=== PATIENT | female | born 1945 | race Caucasian/White ===

== ENCOUNTER → 2018-07-08 | Outpatient (CLI) | payer MEDICARE ==
[~2018-07-08] MED LIST: ALLOPURINOL300 MG PO; BACTRIM DS1 EA PO; BISOPROLOL FUMAR5 MG PO; EMBREL PO; HYDROCODONE AP; LISINOPRIL10 MG; MEDROL4 MG PO; METHOTREXATE2.5 MG PO; Z BISOPROLOL HCT; Z.0.CEFTIN500 MG PO; Z.0.OMEPRAZOLE20 MG PO
--- NOTE | 2018-07-08 12:48 | Diagnostic Imaging Report ---
Exam: Right hand radiographs-3 views; left hand radiographs-3 views History: Bilateral hand pain. Comparison: None. Findings: Right hand: No evidence of acute fracture, malalignment, or soft tissue abnormality. There are moderate degenerative changes of the first carpometacarpal joint. There are scattered mild interphalangeal joint degenerative changes. No evidence of erosion or periarticular osteopenia. There is deformity of the small finger distal phalanx, suggestive of prior trauma. Left hand: No evidence of acute fracture, malalignment, or soft tissue abnormality. There are moderate degenerative changes of the first carpometacarpal joint. There re scattered mild interphalangeal joint degenerative changes. There is bony ankylosis across the second digit DIP joint. No evidence of periarticular osteopenia. Possible erosion is noted in the lunate and the scaphoid on the frontal radiograph, but is not visualized on the oblique radiograph and may reflect overlying soft tissue or artifact. Impression: No specific radiographic evidence of erosive arthropathy as clinically queried. 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 This may be posttraumatic, surgical, or postinflammatory. Signed by: Dr. Walt Cuellar MD on 07/08/2018 12:45 PM
--- NOTE | 2018-07-08 13:02 | Diagnostic Imaging Report ---
EXAM: CT Chest without contrast INDICATION: Chronic cough. COMPARISON: None TECHNIQUE: Chest was scanned utilizing a multidetector helical scanner from the lung apex through the level of the adrenal glands without administration of IV contrast. Coronal and sagittal reformations were obtained. Routine protocol was performed. RADIATION DOSE: Total DLP: 511.7 mGy*cm Dose modulation, iterative reconstruction, and/or weight based adjustment of the mA/kV was utilized to reduce the radiation dose to as low as reasonably achievable. COMPLICATIONS: None FINDINGS: LINES/ TUBES: None. LUNGS AND AIRWAYS: The central airways are patent. There is mild biapical pleural-parenchymal opacity, consistent with prior granulomatous disease. Scattered subpleural opacities in the right upper lobe, for example measuring up to 3 mm on series 3, image 40 may reflect scarring or atelectasis. Opacity along the left major fissure on series 3, image 29 likely reflects atelectasis or scarring. There is a 2 mm groundglass nodule in the right upper lobe on image 30, 2 mm solid nodule in the right upper lobe on images 27 and 38, and a 4 mm solid nodule in the right middle lobe on image 59. Patchy and linear dependent subsegmental atelectasis. PLEURA: The pleural spaces are clear. HEART AND MEDIASTINUM: The thyroid gland is normal. No mediastinal, hilar or axillary lymphadenopathy. No cardiomegaly or pericardial effusion. Coronary atherosclerosis. UPPER ABDOMEN: Limited non-contrast views of the upper abdomen. Moderate hiatal hernia. A 0.5 cm hyperdense lesion in the right mid pole kidney on series 2, image 1:15 likely represents a hemorrhagic cyst (92 HU). BONES: No acute osseous abnormality. No suspicious lytic or blastic lesions. SOFT TISSUES: Unremarkable. IMPRESSION: Small bilateral pulmonary nodules, measuring up to 4 mm are likely benign in a low risk patient. If the patient has a history of smoking or other risk factor for malignancy, an optional follow-up chest CT may be considered in 12 months. Sequela of prior granulomatous disease. Coronary atherosclerosis. Signed by: Dr. Walt Cuellar MD on 07/08/2018 12:59 PM
== END ==
LOC: CT 09:50
PROVIDERS: ATTEND Family Medicine
DX: R05 Cough (principal); M06.011 Rheumatoid arthritis without rheumatoid factor, right shoulder; M06.042 Rheumatoid arthritis without rheumatoid factor, left hand
CPT/HCPCS: 71250

== ENCOUNTER → 2018-08-04 | Day surgery (SDC) | payer MEDICARE ==
[~2018-08-04] MED LIST changes: +FENTANYL CITRATE/PF 100MCG/2 ML INJ ONE; +MIDAZOLAM HCL 2 MG/2 ML VIAL ONE; +OR PHACO EYE KIT ONE; +PREOP PHACO EYE KIT ONE
--- OUTSIDE RECORDS SUMMARY | 2018-08-04 12:55 | XMS REPORT ---
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 Allergies, Adverse Reactions, Alerts This patient has no known allergies or adverse reactions. Medications This patient has no known medications. Results Test Description Test Time Test Comments Text Results Atomic Results Result Comments CT CHEST WO 2018-07-08 12:45:00 [place] [address] Patient Name: ALBERT GILL MR #: [id number] : 1945 Age/Sex: 72/F Req #: [id number] [facility] Physician: Ordered by: MARY GARCIA DO Report #: [id number] Location: CT Room/Bed: Procedure: [id number] CT/CT CHEST WO Exam Date: 07/08/18 Exam Time: 1030 REPORT STATUS: Signed EXAM: CT Chest without contrast INDICATION: Chronic coug h. COMPARISON: None TECHNIQUE: Chest was scanned utilizing a multidetector helical scanner from the lung apex through the level of the adrenal glands without administration of IV contrast. Coronal and sagittal reformations were obtained. Routine protocol was performed. RADIATION DOSE: Total DLP: 511.7 mGy*cm Dose modulation, iterative reconstruction, and/or weight based adjustment of the mA/kV was utilized to reduce the radiation dose to as low as reasonably achievable. COMPLICATIONS: None FINDINGS: LINES/ TUBES: None. LUNGS AND AIRWAYS: The central airways are patent. There is mild biapical pleural- parenchymal opacity, consistent with prior granulomatous disease. Scattered subpleural opacities in the right upper lobe, for example measuring up to 3 mm on series 3, image 40 may reflect scarring or atelectasis. Opacity along the left major fissure on series 3, image 29 likely reflects atelectasis or scarring. There is a 2 mm groundglass nodule in the right upper lobe on image 30, 2 mm solid nodule in the right upper lobe on images 27 and 38, and a 4 mm solid nodule in the right middle lobe on image 59. Patchy and linear dependent subsegmental atelectasis. PLEURA: The pleural spaces are clear. HEART AND MEDIASTINUM: The thyroid gland is normal. No mediastinal, hilar or axillary lymphadenopathy. No cardiomegaly or pericardial effusion. Coronary atherosclerosis. UPPER ABDOMEN: Limited non-contrast views of the upper abdomen. Moderate hiatal hernia. A 0.5 cm hyperdense lesion in the right mid pole kidney on series 2, image 1:15 likely represents a hemorrhagic cyst (92 HU). BONES: No acute osseous abnormality. No suspicious lytic or blastic lesions. SOFT TISSUES: Unremarkable. IMPRESSION: Small bilateral pulmonary nodules, measuring up to 4 mm are likely benign in a low risk patient. If the patient has a history of smoking or other risk factor for fanta gnancy, an optional follow-up chest CT may be considered in 12 months. Sequela of prior granulomatous disease. Coronary atherosclerosis. Signed by: Dr. Lorraine Grijalva MD on 07/08/2018 12:59 PM Dictated By: LORRAINE GRIJALVA MD 1250 Transcribed By: RODRIGO on 07/08/18 1259 COPY TO: MARY GARCIA DO HAND THREE VIEWS BILATERAL 2018-07-08 12:35:00 [place] [address] Patient Name: ALBERT GILL MR #: [id number] : 1945 Age/Sex: 72/F Req #: [id number] Adm Physician: Ordered by: ANGIE LOVE MD Report #: [id number] Location: CT Room/Bed: Procedure: [id number] DX/HAND THREE VIEWS BILATERAL Exam Date: 07/08/18 Exam Time: 0950 REPORT STATUS: Signed Exam: Right hand radiographs-3 views; left hand radiographs-3 views History: Bilateral hand pain. Comparison: None. Findings: Right hand: No evidence of acute fracture, malalignment, or soft tissue abnormality. There are moderate degenerative changes of the first carpometacarpal joint. There are scattered mild interphalangeal joint degenerative changes. No evidence of erosion or periarticular osteopenia. There is deformity of the small finger distal phalanx, suggestive of prior trauma. Left hand: No evidence of acute fracture, malalignment, or soft tissue abnormality. There are moderate degenerative changes of the first carpometacarpal joint. There re scattered mild interphalangeal joint degenerative changes. There is bony ankylosis across the second digit DIP joint. No evidence of periarticular osteopenia. Possible erosion is noted in the lunate and the scaphoid on the frontal radiograph, but is not visualized on the oblique radiograph and may reflect overlying soft tissue or artifact. Impression: No specific radiographic evidence of erosive arthropathy as clinically queried. 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 This may be posttraumatic, surgical, or postinflammatory. Signed by: Dr. Lorraine Grijalva MD on 07/08/2018 12:45 PM Dictated By: LORRAINE GRIJALVA MD [id number] Transcribed By: RODRIGO on 07/08/18 1247 COPY TO: ANGIE LOVE MD
[2018-08-04 16:15] VITALS: BP 137/81
== END | disposition home or self-care (01) ==
LOC: OR 12:50
PROVIDERS: ATTEND Ophthalmology
DX: H25.12 Age-related nuclear cataract, left eye (principal); M06.879 Other specified rheumatoid arthritis, unspecified ankle and foot; I10 Essential (primary) hypertension
CPT/HCPCS: 66984; J2250; V2632

== ENCOUNTER 2020-01-17 08:18 | Emergency (ER) | payer MEDICARE ==
[~2020-01-17] VITALS: Ht 162.6 cm; Wt 70.3 kg
[~2020-01-17 08:18] MED LIST changes: -FENTANYL CITRATE/PF 100MCG/2 ML INJ ONE; -MIDAZOLAM HCL 2 MG/2 ML VIAL ONE; -OR PHACO EYE KIT ONE; -PREOP PHACO EYE KIT ONE
[2020-01-17] MEDS ORDERED: HYDROCODONE/APAP 5MG-325MG TAB PO ONE (08:45)
[2020-01-17] MEDS ORDERED: SODIUM BICARBONATE 8.4% SYRING 50 ML ONE (09:15)
[2020-01-17] MEDS ORDERED: TYLENOL325 MG PO (10:31)
== END 2020-01-17 11:00 | disposition home or self-care (01) ==
LOC: ER 08:36
DX: S01.111A Laceration without foreign body of right eyelid and periocular area, initial encounter (principal); S06.0X0A Concussion without loss of consciousness, initial encounter; M25.561 Pain in right knee; W01.0XXA Fall on same level from slipping, tripping and stumbling without subsequent striking against object, initial encounter; I10 Essential (primary) hypertension; M06.9 Rheumatoid arthritis, unspecified
CPT/HCPCS: 70450; 72125; 99284

== ENCOUNTER 2021-03-05 13:41 | Emergency (ER) | payer MEDICARE ==
[~2021-03-05] VITALS: Ht 157.5 cm; Wt 68.0 kg
[~2021-03-05 13:41] MED LIST changes: +TYLENOL325 MG PO
[2021-03-05] MEDS ORDERED: IBUPROFEN400 MG PO (15:35)
[2021-03-05] MEDS ORDERED: ONDANSETRON ODT4 MG PO (15:35)
[2021-03-05] MEDS ORDERED: CEPHALEXIN500 MG PO (15:47)
== END 2021-03-05 16:38 | disposition home or self-care (01) ==
LOC: FSED 13:53
DX: N39.0 Urinary tract infection, site not specified (principal); R53.83 Other fatigue; R11.0 Nausea; R05.9 Cough, unspecified; I10 Essential (primary) hypertension; M06.9 Rheumatoid arthritis, unspecified; Z20.822 Contact with and (suspected) exposure to COVID-19; R94.31 Abnormal electrocardiogram [ECG] [EKG]
CPT/HCPCS: 71045; 80053; 82553; 84484; 85025; 93005; 99283; U0002

== ENCOUNTER 2021-06-12 00:09 | Emergency (ER) | payer MEDICARE ==
[~2021-06-12] VITALS: Ht 157.5 cm; Wt 68.0 kg
[~2021-06-12 00:09] MED LIST changes: +CEPHALEXIN500 MG PO; +IBUPROFEN400 MG PO; +ONDANSETRON ODT4 MG PO
[2021-06-12 00:32] LABS: CLARITY,URINE CLEAR (CLEAR); COLOR,URINE YELLOW (YELLOW); KETONES,URINE NEGATIVE (NEGATIVE); LEUKOCYTE ESTERASE ,URINE TRACE (NEGATIVE); NITRITE,URINE NEGATIVE (NEGATIVE); PROTEIN,URINE DIPSTICK NEGATIVE (NEGATIVE); URINE UROBILINOGEN 0.2 mg/dL (0.2 - 1)
[2021-06-12 00:39] LABS: BACTERIA,URINE FEW /HPF; EPITHELIAL CELLS,URINE RARE /LPF; RBC,URINE 0-5 /HPF (0-5)
== END 2021-06-12 01:15 | disposition home or self-care (01) ==
LOC: ER 01:02
DX: M54.50 Low back pain, unspecified (principal); N39.0 Urinary tract infection, site not specified; G89.29 Other chronic pain; I10 Essential (primary) hypertension
CPT/HCPCS: 72100; 81001; 99283

== ENCOUNTER → 2021-06-15 | Outpatient (CLI) | payer MEDICARE ==
[~2021-06-15] MED LIST changes: +IOPAMIDOL 370 MG/ML 200 ML INFUS..BTL INJ ONE; +SODIUM CHLORIDE 0.9% 500ML 500 ML ONE; +SODIUM CHLORIDE 0.9% 50ML 50 ML ONE
[2021-06-15 08:57] LABS: CREATININE, SERUM 0.93 mg/dL (0.57-1.11)
== END ==
LOC: CT 08:14
PROVIDERS: ATTEND Family Medicine
DX: R91.8 Other nonspecific abnormal finding of lung field (principal)
CPT/HCPCS: 36415; 71275; 74176; 82565; 84520; J7040; Q9967

== ENCOUNTER 2021-06-18 09:25 | Inpatient (IN) | payer MEDICARE ==
[~2021-06-18] VITALS: Ht 157.5 cm; Wt 58.1 kg
[~2021-06-18 09:25] MED LIST changes: -IOPAMIDOL 370 MG/ML 200 ML INFUS..BTL INJ ONE; -SODIUM CHLORIDE 0.9% 500ML 500 ML ONE; -SODIUM CHLORIDE 0.9% 50ML 50 ML ONE
[2021-06-18] MEDS ORDERED: SODIUM CHLORIDE 0.9% 1000ML 1,000 ML IV SCH ×2 (09:45→13:00)
[2021-06-18 09:53] LABS: BASOPHILS # (AUTO) 0.1 (0.0-0.1); BASOPHILS % 0.5 % (0.0-1.0); EOSINOPHILS % 0.2 % (0.0-6.0); HEMOGLOBIN 7.8 g/dL (12.0-16.0); LYMPHOCYTES # (AUTO) 2.5 (1.0-3.2); LYMPHOCYTES % 25.9 % (18.0-39.1); MEAN CORPUSCULAR HEMOGLOBIN 29.9 pg (28-32); MEAN CORPUSCULAR HGB CONC 32.5 g/dL (31-35); MONOCYTES # (AUTO) 0.6 (0.2-0.8); MONOCYTES % 5.9 % (4.4-11.3); NEUTROPHILS # (AUTO) 6.4 (2.1-6.9); PLATELET COUNT 295 x10e3/uL (140-360); RED BLOOD COUNT 2.61 x10e6/uL (3.6-5.1); RED CELL DISTRIBUTION WIDTH 14.5 % (11.7-14.4)
[2021-06-18 10:13] LABS: INR 1.37
[2021-06-18 10:15] LABS: ALBUMIN 2.6 g/dL (3.5-5.0); ALBUMIN/GLOBULIN RATIO 0.7 (0.8-2.0); ANION GAP 16.9 mmol/L (8-16); CALCIUM 8.4 mg/dL (8.4-10.2); CREATININE, SERUM 1.07 mg/dL (0.57-1.11); POTASSIUM 3.9 mmol/L (3.5-5.1)
[2021-06-18] MEDS ORDERED: IOPAMIDOL 370 MG/ML 200 ML INFUS..BTL INJ ONE (10:40)
[2021-06-18] MEDS ORDERED: SODIUM CHLORIDE 0.9% 100 ML ONE (10:40)
[2021-06-18] MEDS ORDERED: CEFTRIAXONE 1 GM VIAL IV ONE (11:45)
[2021-06-18] MEDS ORDERED: METRONIDAZOLE 750MG/NS 150ML 150 ML IV ONE (12:00)
[2021-06-18] MEDS ORDERED: CEFTRIAXONE 1 GM in SODIUM CHLORIDE 0.9% 50ML 50 ML IV ONE (12:00)
[2021-06-18 12:04] LABS: CLARITY,URINE CLEAR (CLEAR); COLOR,URINE YELLOW (YELLOW); KETONES,URINE NEGATIVE (NEGATIVE); LEUKOCYTE ESTERASE ,URINE NEGATIVE (NEGATIVE); NITRITE,URINE NEGATIVE (NEGATIVE); PROTEIN,URINE DIPSTICK NEGATIVE (NEGATIVE); URINE UROBILINOGEN 0.2 mg/dL (0.2 - 1)
[2021-06-18 12:11] LABS: EPITHELIAL CELLS,URINE FEW /LPF; MUCUS,URINE FEW (RARE); WBC,URINE (MAN) 0-5 /HPF (0-5)
[2021-06-18] MEDS: SODIUM CHLORIDE 0.9% 1000ML 1,000 ML IV SCH ×2 (14:41→19:57)
[2021-06-18 15:15] VITALS: BP 148/64
[2021-06-18 20:00] VITALS: BP 148/64
[2021-06-18 20:16] VITALS: BP 140/91
[2021-06-19] VITALS (8 sets, daily range): BP systolic 118–181; BP diastolic 67–90
[2021-06-19] MEDS: SODIUM CHLORIDE 0.9% 1000ML 1,000 ML IV SCH ×3 (02:23→19:26)
[2021-06-19 03:39] LABS: FERRITIN 180.79 ng/mL (4.63-204.00)
[2021-06-19] MEDS ORDERED: SODIUM CHLORIDE 0.9% 100 ML ONE (03:43)
[2021-06-19] MEDS ORDERED: SODIUM CHLORIDE 0.9% 250ML 250 ML ONE ×3 (03:50→21:14)
[2021-06-19] MEDS ORDERED: PHYTONADIONE 10 MG/ML AMP IV ONE ×2 (04:00→13:00)
[2021-06-19] MEDS: ONDANSETRON HCL INJ 2MG/ML 2ML 2 MG/ML VIAL IV PRN (07:57)
[2021-06-19 08:17] LABS: BASOPHILS # (AUTO) 0.1 (0.0-0.1); BASOPHILS % 0.6 % (0.0-1.0); EOSINOPHILS % 0.5 % (0.0-6.0); HEMATOCRIT 21.5 % (34.2-44.1); LYMPHOCYTES # (AUTO) 2.4 (1.0-3.2); LYMPHOCYTES % 28.8 % (18.0-39.1); MEAN CORPUSCULAR HEMOGLOBIN 30.3 pg (28-32); MEAN CORPUSCULAR HGB CONC 32.6 g/dL (31-35); MEAN CORPUSCULAR VOLUME 93.1 fL (81-99); MONOCYTES # (AUTO) 0.5 (0.2-0.8); MONOCYTES % 6.2 % (4.4-11.3); NEUTROPHILS # (AUTO) 5.3 (2.1-6.9); NEUTROPHILS % 63.2 % (38.7-80.0); PLATELET COUNT 234 x10e3/uL (140-360); RED BLOOD COUNT 2.31 x10e6/uL (3.6-5.1)
[2021-06-19 08:25] LABS: CREATININE, SERUM 0.82 mg/dL (0.57-1.11)
[2021-06-19] MEDS: Morphine 4mg Syringe 4 MG/ML INJ IV PRN ×2 (09:04→16:42)
[2021-06-19] MEDS ORDERED: SODIUM CHLORIDE 0.9% 250ML 250 ML IV ONE ×2 (10:15→10:30)
[2021-06-19] MEDS ORDERED: POTASSIUM CHLORIDE 20MEQ/100ML 200 ML IV ONE (11:00)
[2021-06-19] MEDS ORDERED: EPINEPHRINE HCL 1:1000 1ML 1 MG/ML AMP ONE (12:43)
[2021-06-19] MEDS ORDERED: PHYTONADIONE 10MG/ML 20 MG in SODIUM CHLORIDE 0.9% 50ML 50 ML IV ONE (13:15)
[2021-06-19] MEDS: Pantoprazole IV 40 MG in SODIUM CHLORIDE 0.9% 50ML 50 ML IV SCH ×2 (14:00→19:00)
[2021-06-19] MEDS ORDERED: MIDAZOLAM HCL 2 MG/2 ML VIAL ONE (18:03)
[2021-06-19] MEDS ORDERED: PHENYLEPHRINE HCL 1% 10 MG/ML VIAL ONE (19:17)
[2021-06-19] MEDS ORDERED: PROPOFOL IV EMULSION 10 MG/ML 20 ML VIAL ONE (19:17)
[2021-06-19] MEDS ORDERED: LIDOCAINE HCL 2% LOCAL INJ 5 ML SDV VIAL INJ ONE (19:17)
[2021-06-19] MEDS ORDERED: EPHEDRINE SULFATE INJ 50 MG/ML VIAL ONE (19:17)
[2021-06-20] VITALS (25 sets, daily range): BP systolic 105–138; BP diastolic 68–109
[2021-06-20] MEDS: SODIUM CHLORIDE 0.9% 1000ML 1,000 ML IV SCH ×4 (00:05→20:09)
[2021-06-20] MEDS: Pantoprazole IV 40 MG in SODIUM CHLORIDE 0.9% 50ML 50 ML IV SCH ×6 (05:00→21:08)
[2021-06-20 05:28] LABS: BASOPHILS % 0.5 % (0.0-1.0); EOSINOPHILS # (AUTO) 0.1 (0.0-0.4); EOSINOPHILS % 1.6 % (0.0-6.0); HEMATOCRIT 26.7 % (34.2-44.1); HEMOGLOBIN 8.6 g/dL (12.0-16.0); LYMPHOCYTES # (AUTO) 2.2 (1.0-3.2); LYMPHOCYTES % 29.4 % (18.0-39.1); MEAN CORPUSCULAR HEMOGLOBIN 31.2 pg (28-32); MEAN CORPUSCULAR HGB CONC 32.2 g/dL (31-35); MEAN CORPUSCULAR VOLUME 96.7 fL (81-99); MONOCYTES # (AUTO) 0.4 (0.2-0.8); MONOCYTES % 5.1 % (4.4-11.3); NEUTROPHILS # (AUTO) 4.8 (2.1-6.9); NEUTROPHILS % 62.9 % (38.7-80.0); PLATELET COUNT 155 x10e3/uL (140-360); RED BLOOD COUNT 2.76 x10e6/uL (3.6-5.1); RED CELL DISTRIBUTION WIDTH 18.9 % (11.7-14.4)
[2021-06-20 05:40] LABS: INR 1.05; PROTHROMBIN TIME 14.6 seconds (11.9-14.5)
[2021-06-20 05:51] LABS: ALBUMIN 2.4 g/dL (3.5-5.0); ALBUMIN/GLOBULIN RATIO 0.8 (0.8-2.0); ANION GAP 12.4 mmol/L (8-16); CALCIUM 7.5 mg/dL (8.4-10.2); CREATININE, SERUM 0.76 mg/dL (0.57-1.11); POTASSIUM 3.4 mmol/L (3.5-5.1)
[2021-06-20 11:42] LABS: CREATINE KINASE MB 64.5 ng/mL (0-5.0)
[2021-06-20] MEDS: NITROGLYCERIN 0.4 MG SUBL SL PRN ×2 (12:20→14:07)
[2021-06-20] MEDS ORDERED: HEPARIN SOD (PORCINE) 1000 UNIT/ML 30ML ONE (12:51)
[2021-06-20] MEDS ORDERED: HEPARIN SOD/SOD CHLORIDE 0 ML ONE (12:51)
[2021-06-20] MEDS ORDERED: LIDOCAINE HCL 2% LOCAL 20 ML VIAL ONE (12:51)
[2021-06-20] MEDS ORDERED: IOPAMIDOL 370 MG/ML 200 ML INFUS..BTL INJ ONE (12:52)
[2021-06-20] MEDS ORDERED: NITROGLYCERIN/D5W 200 MCG/ML 0 ML ONE (12:52)
[2021-06-20] MEDS ORDERED: SODIUM CHLORIDE 0.9% 1000ML 0 ML ONE (12:52)
[2021-06-20] MEDS ORDERED: VERAPAMIL HCL 2.5 MG/ML 2 ML VIAL ONE (12:53)
[2021-06-20] MEDS ORDERED: NITROGLYCERIN 0.2 MG/HR PATCH TOP SCH (14:00)
[2021-06-20] MEDS: Morphine 4mg Syringe 4 MG/ML INJ IV PRN ×2 (14:39→21:16)
[2021-06-20 17:27] LABS: CREATINE KINASE MB 53.1 ng/mL (0-5.0)
[2021-06-20] MEDS ORDERED: ASPIRIN 81 MG CHEW TAB PO ONE (17:45)
[2021-06-20] MEDS: ATORVASTATIN 40 MG TAB PO SCH (21:08)
[2021-06-20 23:33] LABS: CREATINE KINASE MB 39.8 ng/mL (0-5.0)
[2021-06-21] VITALS (25 sets, daily range): BP systolic 87–148; BP diastolic 54–104
[2021-06-21] MEDS ORDERED: FOLIC ACID 1 MG TAB PO ONE
[2021-06-21] MEDS ORDERED: CYANOCOBALAMIN INJ 1,000 MCG/ML VIAL IM ONE
[2021-06-21] MEDS: Pantoprazole IV 40 MG in SODIUM CHLORIDE 0.9% 50ML 50 ML IV SCH ×5 (01:31→21:04)
[2021-06-21] MEDS: SODIUM CHLORIDE 0.9% 1000ML 1,000 ML IV SCH ×2 (03:51→11:34)
[2021-06-21] MEDS: SUCRALFATE 1 GM/10 ML SUSP PO SCH ×4 (07:30→21:04)
[2021-06-21] MEDS: NITROGLYCERIN 0.4 MG SUBL SL PRN ×4 (07:47→14:16)
[2021-06-21] MEDS ORDERED: NITROGLYCERIN 0.2 MG/HR PATCH TOP SCH (09:00)
[2021-06-21] MEDS: CYANOCOBALAMIN INJ 1,000 MCG/ML VIAL IM SCH (09:15)
[2021-06-21] MEDS: ASPIRIN 81 MG CHEW TAB PO SCH (09:15)
[2021-06-21] MEDS: FOLIC ACID 1 MG TAB PO SCH (09:15)
[2021-06-21] MEDS: Morphine 4mg Syringe 4 MG/ML INJ IV PRN ×2 (11:35→21:38)
[2021-06-21] MEDS: CEFTRIAXONE 1 GM in SODIUM CHLORIDE 0.9% 50ML 50 ML IV SCH (12:47)
[2021-06-21] MEDS: NITROGLYCERIN/D5W 200 MCG/ML 250 ML IV SCH (15:02)
[2021-06-21] MEDS: ATORVASTATIN 40 MG TAB PO SCH (21:04)
[2021-06-22] VITALS (17 sets, daily range): BP systolic 89–135; BP diastolic 57–94
[2021-06-22] MEDS: SODIUM CHLORIDE 0.9% 1000ML 1,000 ML IV SCH ×3 (01:31→12:30)
[2021-06-22] MEDS: Pantoprazole IV 40 MG in SODIUM CHLORIDE 0.9% 50ML 50 ML IV SCH ×5 (01:31→21:33)
[2021-06-22 05:03] LABS: BASOPHILS % 0.7 % (0.0-1.0); EOSINOPHILS # (AUTO) 0.2 (0.0-0.4); EOSINOPHILS % 3.6 % (0.0-6.0); HEMOGLOBIN 8.3 g/dL (12.0-16.0); LYMPHOCYTES # (AUTO) 1.5 (1.0-3.2); MEAN CORPUSCULAR HEMOGLOBIN 31.7 pg (28-32); MEAN CORPUSCULAR HGB CONC 31.9 g/dL (31-35); MEAN CORPUSCULAR VOLUME 99.2 fL (81-99); MONOCYTES # (AUTO) 0.4 (0.2-0.8); MONOCYTES % 7.2 % (4.4-11.3); NEUTROPHILS # (AUTO) 3.9 (2.1-6.9); NEUTROPHILS % 62.8 % (38.7-80.0); PLATELET COUNT 128 x10e3/uL (140-360); RED BLOOD COUNT 2.62 x10e6/uL (3.6-5.1); RED CELL DISTRIBUTION WIDTH 19.3 % (11.7-14.4)
[2021-06-22] MEDS: Morphine 4mg Syringe 4 MG/ML INJ IV PRN ×3 (07:36→16:49)
[2021-06-22] MEDS: CEFTRIAXONE 1 GM in SODIUM CHLORIDE 0.9% 50ML 50 ML IV SCH (08:38)
[2021-06-22] MEDS: ASPIRIN 81 MG CHEW TAB PO SCH (08:38)
[2021-06-22] MEDS: CYANOCOBALAMIN INJ 1,000 MCG/ML VIAL IM SCH (09:01)
[2021-06-22] MEDS: FOLIC ACID 1 MG TAB PO SCH (09:01)
[2021-06-22] MEDS: NITROGLYCERIN 0.4 MG SUBL SL PRN ×3 (09:11→09:29)
[2021-06-22] MEDS: SUCRALFATE 1 GM/10 ML SUSP PO SCH ×4 (09:11→21:00)
[2021-06-22 09:45] LABS: ALBUMIN 2.1 g/dL (3.5-5.0); ALBUMIN/GLOBULIN RATIO 0.8 (0.8-2.0); ANION GAP 8.3 mmol/L (8-16); CREATININE, SERUM 0.67 mg/dL (0.57-1.11); POTASSIUM 3.3 mmol/L (3.5-5.1)
[2021-06-22] MEDS ORDERED: POTASSIUM CHLORIDE 20 MEQ TAB CR PO STA (09:51)
[2021-06-22 10:15] LABS: INR 1.08
[2021-06-22 10:16] LABS: CREATINE KINASE MB 21.4 ng/mL (0-5.0); PARTIAL THROMBOPLASTIN TIME 31.5 seconds (23.8-35.5)
[2021-06-22] MEDS ORDERED: SODIUM CHLORIDE 0.9% 250ML 250 ML IV ONE (10:30)
[2021-06-22] MEDS: NITROGLYCERIN/D5W 200 MCG/ML 250 ML IV SCH (10:31)
[2021-06-22] MEDS: ONDANSETRON HCL INJ 2MG/ML 2ML 2 MG/ML VIAL IV PRN ×2 (10:38→16:49)
[2021-06-22] MEDS ORDERED: LIDOCAINE HCL 2% LOCAL 20 ML VIAL ONE (11:08)
[2021-06-22] MEDS ORDERED: HEPARIN SOD (PORCINE) 1000 UNIT/ML 30ML ONE (11:08)
[2021-06-22] MEDS ORDERED: HEPARIN SOD/SOD CHLORIDE 2,000 ML ONE (11:08)
[2021-06-22] MEDS ORDERED: NITROGLYCERIN/D5W 200 MCG/ML 250 ML ONE (11:09)
[2021-06-22] MEDS ORDERED: SODIUM CHLORIDE 0.9% 1000ML 1,000 ML ONE (11:09)
[2021-06-22] MEDS ORDERED: IOPAMIDOL 370 MG/ML 200 ML INFUS..BTL INJ ONE ×2 (11:09→11:17)
[2021-06-22] MEDS ORDERED: VERAPAMIL HCL 2.5 MG/ML 2 ML VIAL ONE (11:10)
[2021-06-22] MEDS ORDERED: MIDAZOLAM HCL 2 MG/2 ML VIAL ONE (11:11)
[2021-06-22] MEDS ORDERED: FENTANYL CITRATE/PF 100MCG/2 ML INJ ONE (11:11)
[2021-06-22] MEDS ORDERED: CLOPIDOGREL BISULFATE 75 MG TAB ONE (12:03)
[2021-06-22 12:57] LABS: HEMATOCRIT 26.2 % (34.2-44.1); HEMOGLOBIN 8.3 g/dL (12.0-16.0)
[2021-06-22 15:47] LABS: BASOPHILS % 0.4 % (0.0-1.0); EOSINOPHILS # (AUTO) 0.1 (0.0-0.4); EOSINOPHILS % 1.6 % (0.0-6.0); HEMATOCRIT 26.4 % (34.2-44.1); HEMOGLOBIN 8.3 g/dL (12.0-16.0); LYMPHOCYTES # (AUTO) 1.2 (1.0-3.2); LYMPHOCYTES % 16.8 % (18.0-39.1); MEAN CORPUSCULAR HEMOGLOBIN 31.7 pg (28-32); MEAN CORPUSCULAR HGB CONC 31.4 g/dL (31-35); MEAN CORPUSCULAR VOLUME 100.8 fL (81-99); MONOCYTES # (AUTO) 0.4 (0.2-0.8); MONOCYTES % 5.3 % (4.4-11.3); NEUTROPHILS # (AUTO) 5.5 (2.1-6.9); NEUTROPHILS % 75.5 % (38.7-80.0); PLATELET COUNT 144 x10e3/uL (140-360); RED BLOOD COUNT 2.62 x10e6/uL (3.6-5.1); RED CELL DISTRIBUTION WIDTH 19.8 % (11.7-14.4)
[2021-06-22] MEDS: ATORVASTATIN 40 MG TAB PO SCH (21:00)
[2021-06-23] VITALS (29 sets, daily range): BP systolic 73–133; BP diastolic 43–94
[2021-06-23] MEDS: SODIUM CHLORIDE 0.9% 1000ML 1,000 ML IV SCH ×2 (02:29→09:32)
[2021-06-23] MEDS: Pantoprazole IV 40 MG in SODIUM CHLORIDE 0.9% 50ML 50 ML IV SCH ×5 (02:29→23:08)
[2021-06-23 06:03] LABS: BASOPHILS % 0.6 % (0.0-1.0); EOSINOPHILS # (AUTO) 0.3 (0.0-0.4); EOSINOPHILS % 4.6 % (0.0-6.0); HEMATOCRIT 28.4 % (34.2-44.1); HEMOGLOBIN 8.8 g/dL (12.0-16.0); LYMPHOCYTES # (AUTO) 1.3 (1.0-3.2); LYMPHOCYTES % 19.9 % (18.0-39.1); MEAN CORPUSCULAR HEMOGLOBIN 31.2 pg (28-32); MEAN CORPUSCULAR VOLUME 100.7 fL (81-99); MONOCYTES # (AUTO) 0.5 (0.2-0.8); MONOCYTES % 7.1 % (4.4-11.3); NEUTROPHILS # (AUTO) 4.5 (2.1-6.9); NEUTROPHILS % 67.4 % (38.7-80.0); PLATELET COUNT 156 x10e3/uL (140-360); RED BLOOD COUNT 2.82 x10e6/uL (3.6-5.1); RED CELL DISTRIBUTION WIDTH 20.2 % (11.7-14.4)
[2021-06-23 06:24] LABS: ALBUMIN 2.1 g/dL (3.5-5.0); ALBUMIN/GLOBULIN RATIO 0.7 (0.8-2.0); ANION GAP 10.8 mmol/L (8-16); CALCIUM 7.2 mg/dL (8.4-10.2); CREATININE, SERUM 0.69 mg/dL (0.57-1.11); POTASSIUM 3.8 mmol/L (3.5-5.1)
[2021-06-23] MEDS: ONDANSETRON HCL INJ 2MG/ML 2ML 2 MG/ML VIAL IV PRN ×3 (08:45→21:50)
[2021-06-23] MEDS: CYANOCOBALAMIN INJ 1,000 MCG/ML VIAL IM SCH (09:00)
[2021-06-23] MEDS: SUCRALFATE 1 GM/10 ML SUSP PO SCH ×4 (09:08→21:15)
[2021-06-23] MEDS: CEFTRIAXONE 1 GM in SODIUM CHLORIDE 0.9% 50ML 50 ML IV SCH (09:09)
[2021-06-23] MEDS: FOLIC ACID 1 MG TAB PO SCH (09:09)
[2021-06-23] MEDS: ASPIRIN 81 MG CHEW TAB PO SCH (09:09)
[2021-06-23] MEDS: Morphine 4mg Syringe 4 MG/ML INJ IV PRN ×2 (09:50→21:50)
[2021-06-23] MEDS ORDERED: METOPROLOL SUCCINATE 25 MG TAB XL PO SCH (10:15)
[2021-06-23] MEDS ORDERED: FUROSEMIDE INJ 10 MG/ML 4 ML VIAL IV ONE (11:00)
[2021-06-23] MEDS ORDERED: METOPROLOL TARTRATE INJ 1 MG/ML VIAL ONE (11:09)
[2021-06-23] MEDS ORDERED: METOPROLOL TARTRATE INJ 1 MG/ML VIAL IV ONE (11:30)
[2021-06-23] MEDS: METOPROLOL SUCCINATE 25 MG TAB XL PO SCH ×2 (11:30→16:55)
[2021-06-23] MEDS ORDERED: DIGOXIN INJ 0.25 MG/ML 2 ML AMP ONE (12:10)
[2021-06-23] MEDS ORDERED: DIGOXIN INJ 0.25 MG/ML 2 ML AMP IV ONE (12:30)
[2021-06-23] MEDS ORDERED: AMIODARONE 900MG 900 MG in Premix Bag 1 BAG IV SCH (12:30)
[2021-06-23] MEDS ORDERED: AMIODARONE HCL 150 MG/100 ML BAG IV ONE (13:00)
[2021-06-23] MEDS: NITROGLYCERIN/D5W 200 MCG/ML 250 ML IV SCH (13:30)
[2021-06-23] MEDS ORDERED: AMIODARONE HCL 150 MG in DEXTROSE 5% 100ML 100 ML IV SCH (13:30)
[2021-06-23] MEDS: CLOPIDOGREL BISULFATE 75 MG TAB PO SCH (13:43)
[2021-06-23] MEDS: AMIODARONE 900MG 500 ML IV SCH (13:43)
[2021-06-23] MEDS: ATORVASTATIN 40 MG TAB PO SCH (21:15)
[2021-06-24] VITALS (27 sets, daily range): BP systolic 81–149; BP diastolic 51–85
[2021-06-24] MEDS: Pantoprazole IV 40 MG in SODIUM CHLORIDE 0.9% 50ML 50 ML IV SCH ×4 (02:25→21:00)
[2021-06-24] MEDS: AMIODARONE 900MG 500 ML IV SCH (04:25)
[2021-06-24 05:55] LABS: BASOPHILS # (AUTO) 0.1 (0.0-0.1); BASOPHILS % 0.7 % (0.0-1.0); EOSINOPHILS # (AUTO) 0.3 (0.0-0.4); EOSINOPHILS % 4.9 % (0.0-6.0); HEMATOCRIT 25.5 % (34.2-44.1); HEMOGLOBIN 8.1 g/dL (12.0-16.0); LYMPHOCYTES # (AUTO) 1.9 (1.0-3.2); LYMPHOCYTES % 28.7 % (18.0-39.1); MEAN CORPUSCULAR HEMOGLOBIN 31.3 pg (28-32); MEAN CORPUSCULAR HGB CONC 31.8 g/dL (31-35); MEAN CORPUSCULAR VOLUME 98.5 fL (81-99); MONOCYTES # (AUTO) 0.5 (0.2-0.8); MONOCYTES % 7.8 % (4.4-11.3); NEUTROPHILS # (AUTO) 3.8 (2.1-6.9); NEUTROPHILS % 57.3 % (38.7-80.0); PLATELET COUNT 157 x10e3/uL (140-360); RED BLOOD COUNT 2.59 x10e6/uL (3.6-5.1); RED CELL DISTRIBUTION WIDTH 20.2 % (11.7-14.4)
[2021-06-24 06:23] LABS: ALBUMIN/GLOBULIN RATIO 0.7 (0.8-2.0); ANION GAP 8.6 mmol/L (8-16); CALCIUM 7.3 mg/dL (8.4-10.2); CREATININE, SERUM 0.79 mg/dL (0.57-1.11); POTASSIUM 3.6 mmol/L (3.5-5.1)
[2021-06-24] MEDS: CEFTRIAXONE 1 GM in SODIUM CHLORIDE 0.9% 50ML 50 ML IV SCH (09:57)
[2021-06-24] MEDS: CLOPIDOGREL BISULFATE 75 MG TAB PO SCH (09:57)
[2021-06-24] MEDS: ASPIRIN 81 MG CHEW TAB PO SCH (09:57)
[2021-06-24] MEDS: FOLIC ACID 1 MG TAB PO SCH (09:57)
[2021-06-24] MEDS: CYANOCOBALAMIN INJ 1,000 MCG/ML VIAL IM SCH (09:57)
[2021-06-24] MEDS: SUCRALFATE 1 GM/10 ML SUSP PO SCH ×4 (09:57→21:30)
[2021-06-24] MEDS: METOPROLOL SUCCINATE 25 MG TAB XL PO SCH ×2 (09:58→16:16)
[2021-06-24] MEDS ORDERED: FUROSEMIDE INJ 10 MG/ML 4 ML VIAL IV ONE (11:30)
[2021-06-24] MEDS: ONDANSETRON HCL INJ 2MG/ML 2ML 2 MG/ML VIAL IV PRN ×2 (12:15→22:10)
[2021-06-24] MEDS ORDERED: NITROGLYCERIN 0.4 MG SUBL SL PRN (13:00)
[2021-06-24] MEDS: AMIODARONE HCL 200 MG TAB PO SCH ×2 (13:52→16:14)
[2021-06-24] MEDS: ATORVASTATIN 40 MG TAB PO SCH (21:30)
[2021-06-25] VITALS (18 sets, daily range): BP systolic 98–126; BP diastolic 60–88
[2021-06-25] MEDS: Pantoprazole IV 40 MG in SODIUM CHLORIDE 0.9% 50ML 50 ML IV SCH ×5 (01:30→21:23)
[2021-06-25 05:07] LABS: BASOPHILS % 0.4 % (0.0-1.0); EOSINOPHILS # (AUTO) 0.3 (0.0-0.4); EOSINOPHILS % 4.5 % (0.0-6.0); HEMATOCRIT 27.6 % (34.2-44.1); HEMOGLOBIN 9.1 g/dL (12.0-16.0); LYMPHOCYTES # (AUTO) 1.9 (1.0-3.2); LYMPHOCYTES % 27.7 % (18.0-39.1); MEAN CORPUSCULAR HEMOGLOBIN 31.2 pg (28-32); MONOCYTES # (AUTO) 0.6 (0.2-0.8); MONOCYTES % 9.1 % (4.4-11.3); NEUTROPHILS # (AUTO) 3.9 (2.1-6.9); NEUTROPHILS % 57.7 % (38.7-80.0); PLATELET COUNT 168 x10e3/uL (140-360); RED BLOOD COUNT 2.92 x10e6/uL (3.6-5.1); RED CELL DISTRIBUTION WIDTH 19.7 % (11.7-14.4)
[2021-06-25 05:08] LABS: MEAN CORPUSCULAR VOLUME 94.5 fL (81-99)
[2021-06-25 05:30] LABS: ALANINE AMINOTRANSFERASE 14 IU/L (0-55); ALBUMIN 2.4 g/dL (3.5-5.0); ALBUMIN/GLOBULIN RATIO 0.7 (0.8-2.0); ALKALINE PHOSPHATASE 83 IU/L (40-150); ANION GAP 13.6 mmol/L (8-16); BLOOD UREA NITROGEN < 5 mg/dL (7-26); CALCIUM 7.8 mg/dL (8.4-10.2); CARBON DIOXIDE 33 mmol/L (22-29); CHLORIDE 98 mmol/L (98-107); CREATININE, SERUM 0.87 mg/dL (0.57-1.11); EST GLOMERULAR FILTRATION RATE 63 ML/MIN (60-); GLUCOSE 107 mg/dL (74-118); SODIUM 142 mmol/L (136-145)
[2021-06-25 05:31] LABS: BUN/CREATININE RATIO 6 (6-25)
[2021-06-25 05:33] LABS: POTASSIUM 2.6 mmol/L (3.5-5.1)
[2021-06-25] MEDS ORDERED: POTASSIUM CHLORIDE 20 MEQ TAB CR PO STA (05:51)
[2021-06-25] MEDS: CEFTRIAXONE 1 GM in SODIUM CHLORIDE 0.9% 50ML 50 ML IV SCH (08:18)
[2021-06-25] MEDS: ASPIRIN 81 MG CHEW TAB PO SCH (08:18)
[2021-06-25] MEDS: CLOPIDOGREL BISULFATE 75 MG TAB PO SCH (08:18)
[2021-06-25] MEDS: SUCRALFATE 1 GM TAB PO SCH ×4 (08:18→21:23)
[2021-06-25] MEDS: AMIODARONE HCL 200 MG TAB PO SCH ×2 (08:18→16:50)
[2021-06-25] MEDS: FOLIC ACID 1 MG TAB PO SCH (08:18)
[2021-06-25] MEDS: CYANOCOBALAMIN INJ 1,000 MCG/ML VIAL IM SCH (08:18)
[2021-06-25] MEDS: METOPROLOL SUCCINATE 25 MG TAB XL PO SCH ×2 (08:19→16:56)
[2021-06-25] MEDS ORDERED: POTASSIUM CHLORIDE 20 MEQ TAB CR PO ONE (12:00)
[2021-06-25] MEDS: ATORVASTATIN 40 MG TAB PO SCH (21:23)
[2021-06-26] MEDS: Pantoprazole IV 40 MG in SODIUM CHLORIDE 0.9% 50ML 50 ML IV SCH ×5 (03:42→23:30)
[2021-06-26 07:00] VITALS: BP 106/63
[2021-06-26 08:00] VITALS: BP 115/78
[2021-06-26] MEDS: CEFTRIAXONE 1 GM in SODIUM CHLORIDE 0.9% 50ML 50 ML IV SCH (08:09)
[2021-06-26] MEDS: AMIODARONE HCL 200 MG TAB PO SCH ×2 (08:09→16:54)
[2021-06-26] MEDS: ASPIRIN 81 MG CHEW TAB PO SCH (08:09)
[2021-06-26] MEDS: CLOPIDOGREL BISULFATE 75 MG TAB PO SCH (08:09)
[2021-06-26] MEDS: SUCRALFATE 1 GM TAB PO SCH ×4 (08:09→21:01)
[2021-06-26] MEDS: CYANOCOBALAMIN INJ 1,000 MCG/ML VIAL IM SCH (08:09)
[2021-06-26] MEDS: FOLIC ACID 1 MG TAB PO SCH (08:09)
[2021-06-26] MEDS: METOPROLOL SUCCINATE 25 MG TAB XL PO SCH ×2 (08:12→16:55)
[2021-06-26 08:13] VITALS: BP 115/78
[2021-06-26 10:20] LABS: BASOPHILS % 0.6 % (0.0-1.0); EOSINOPHILS # (AUTO) 0.3 (0.0-0.4); EOSINOPHILS % 4.2 % (0.0-6.0); HEMATOCRIT 28.7 % (34.2-44.1); HEMOGLOBIN 9.3 g/dL (12.0-16.0); LYMPHOCYTES % 28.7 % (18.0-39.1); MEAN CORPUSCULAR HEMOGLOBIN 31.5 pg (28-32); MEAN CORPUSCULAR HGB CONC 32.4 g/dL (31-35); MEAN CORPUSCULAR VOLUME 97.3 fL (81-99); MONOCYTES # (AUTO) 0.6 (0.2-0.8); MONOCYTES % 8.1 % (4.4-11.3); NEUTROPHILS # (AUTO) 4.1 (2.1-6.9); NEUTROPHILS % 57.7 % (38.7-80.0); PLATELET COUNT 187 x10e3/uL (140-360); RED BLOOD COUNT 2.95 x10e6/uL (3.6-5.1); RED CELL DISTRIBUTION WIDTH 20.4 % (11.7-14.4)
[2021-06-26 10:42] LABS: ALBUMIN 2.4 g/dL (3.5-5.0); ALBUMIN/GLOBULIN RATIO 0.7 (0.8-2.0); ANION GAP 13.2 mmol/L (8-16); CALCIUM 7.9 mg/dL (8.4-10.2); CREATININE, SERUM 0.81 mg/dL (0.57-1.11); POTASSIUM 3.2 mmol/L (3.5-5.1)
[2021-06-26] MEDS ORDERED: POTASSIUM CHLORIDE 20 MEQ TAB CR PO STA (10:51)
[2021-06-26 11:00] VITALS: BP 95/79
[2021-06-26 16:56] VITALS: BP 118/66
[2021-06-26 20:00] VITALS: BP 121/72
[2021-06-26] MEDS: ATORVASTATIN 40 MG TAB PO SCH (21:01)
[2021-06-27] VITALS: BP 132/80
[2021-06-27 04:00] VITALS: BP 118/78
[2021-06-27] MEDS: Pantoprazole IV 40 MG in SODIUM CHLORIDE 0.9% 50ML 50 ML IV SCH ×4 (05:11→17:00)
[2021-06-27 07:46] VITALS: BP 135/79
[2021-06-27 08:32] VITALS: BP 135/79
[2021-06-27] MEDS: CEFTRIAXONE 1 GM in SODIUM CHLORIDE 0.9% 50ML 50 ML IV SCH (08:49)
[2021-06-27] MEDS: SUCRALFATE 1 GM TAB PO SCH ×3 (08:52→16:28)
[2021-06-27] MEDS: CYANOCOBALAMIN INJ 1,000 MCG/ML VIAL IM SCH (08:54)
[2021-06-27] MEDS: ASPIRIN 81 MG CHEW TAB PO SCH (08:54)
[2021-06-27] MEDS: AMIODARONE HCL 200 MG TAB PO SCH ×2 (08:55→16:28)
[2021-06-27] MEDS: CLOPIDOGREL BISULFATE 75 MG TAB PO SCH (08:56)
[2021-06-27] MEDS: FOLIC ACID 1 MG TAB PO SCH (08:56)
[2021-06-27] MEDS: METOPROLOL SUCCINATE 25 MG TAB XL PO SCH ×2 (08:57→16:29)
[2021-06-27 11:32] VITALS: BP 129/84
[2021-06-27] MEDS ORDERED: POTASSIUM CHLORIDE 10MEQ EA PO ONE (12:15)
[2021-06-27 15:50] VITALS: BP 125/80
== END 2021-06-27 20:09 | DRG 981 ==
LOC: ER 09:49 → ERHOLD 12:02 → MED/SURG 14:50 → ICU 06-20 15:05 → MED/SURG 06-26 16:55
PROC: 3E0G8GC Introduction of Other Therapeutic Substance into Upper GI, Via Natural or Artificial Opening Endoscopic (ICD-10-PCS; 2021-06-19)
PROC: 30233K1 Transfusion of Nonautologous Frozen Plasma into Peripheral Vein, Percutaneous Approach (ICD-10-PCS; 2021-06-19)
PROC: 30233N1 Transfusion of Nonautologous Red Blood Cells into Peripheral Vein, Percutaneous Approach (ICD-10-PCS; 2021-06-19)
PROC: 0W3P8ZZ Control Bleeding in Gastrointestinal Tract, Via Natural or Artificial Opening Endoscopic (ICD-10-PCS; principal; 2021-06-19 12:17)
PROC: 027034Z Dilation of Coronary Artery, One Artery with Drug-eluting Intraluminal Device, Percutaneous Approach (ICD-10-PCS; 2021-06-22)
PROC: 4A023N7 Measurement of Cardiac Sampling and Pressure, Left Heart, Percutaneous Approach (ICD-10-PCS; 2021-06-22)
PROC: B2111ZZ Fluoroscopy of Multiple Coronary Arteries using Low Osmolar Contrast (ICD-10-PCS; 2021-06-22)
PROC: B2151ZZ Fluoroscopy of Left Heart using Low Osmolar Contrast (ICD-10-PCS; 2021-06-22)
DX: K25.0 Acute gastric ulcer with hemorrhage (principal); K20.91 Esophagitis, unspecified with bleeding; I50.43 Acute on chronic combined systolic (congestive) and diastolic (congestive) heart failure; E43 Unspecified severe protein-calorie malnutrition; I21.3 ST elevation (STEMI) myocardial infarction of unspecified site; D62 Acute posthemorrhagic anemia; N17.9 Acute kidney failure, unspecified; N39.0 Urinary tract infection, site not specified; I11.0 Hypertensive heart disease with heart failure; M06.9 Rheumatoid arthritis, unspecified; I25.2 Old myocardial infarction; Z79.01 Long term (current) use of anticoagulants; I48.0 Paroxysmal atrial fibrillation; B96.20 Unspecified Escherichia coli [E. coli] as the cause of diseases classified elsewhere; Z68.23 Body mass index [BMI] 23.0-23.9, adult; E87.6 Hypokalemia; I25.119 Atherosclerotic heart disease of native coronary artery with unspecified angina pectoris; Z20.822 Contact with and (suspected) exposure to COVID-19; K26.0 Acute duodenal ulcer with hemorrhage
CPT/HCPCS: 36415; 43255; 70450; 71045; 71046; 74018; 74174; 80048; 80053; 81001; 82550; 82553; 82607; 82728; 82746; 83540; 83605; 83880; 84466; 84484; 85014; 85018; 85025; 85045; 85610; 85730; 86850; 86900; 86920; 87040; 87086; 87186; 92920; 92928; 93005; 93306; 93454; 94799; 97139; 99152; 99153; 99251; 99284; C1725; C1760; C1874; C1887; J0171; J0696; J1160; J1644; J1940; J2001; J2250; J2270; J2370; J2405; J3010; J3420; J3430; J3480; J7030; J7050; P9016; P9017; Q9967; U0002

== ENCOUNTER 2021-09-10 14:38 | Inpatient (IN) | payer MEDICARE ==
[~2021-09-10] VITALS: Ht 157.5 cm; Wt 53.5 kg
[2021-09-10 15:16] LABS: BASOPHILS # (AUTO) 0.1 (0.0-0.1); BASOPHILS % 0.7 % (0.0-1.0); EOSINOPHILS # (AUTO) 0.2 (0.0-0.4); EOSINOPHILS % 2.3 % (0.0-6.0); HEMATOCRIT 27.2 % (34.2-44.1); HEMOGLOBIN 8.3 g/dL (12.0-16.0); LYMPHOCYTES # (AUTO) 1.6 (1.0-3.2); LYMPHOCYTES % 21.5 % (18.0-39.1); MEAN CORPUSCULAR HEMOGLOBIN 29.4 pg (28-32); MEAN CORPUSCULAR HGB CONC 30.5 g/dL (31-35); MEAN CORPUSCULAR VOLUME 96.5 fL (81-99); MONOCYTES # (AUTO) 0.4 (0.2-0.8); MONOCYTES % 4.8 % (4.4-11.3); NEUTROPHILS # (AUTO) 5.1 (2.1-6.9); NEUTROPHILS % 70.6 % (38.7-80.0); PLATELET COUNT 185 x10e3/uL (140-360); RED BLOOD COUNT 2.82 x10e6/uL (3.6-5.1); RED CELL DISTRIBUTION WIDTH 15.3 % (11.7-14.4)
[2021-09-10 15:30] LABS: INR 1.09; PROTHROMBIN TIME 15.1 seconds (11.9-14.5)
[2021-09-10 15:31] LABS: PARTIAL THROMBOPLASTIN TIME 24.5 seconds (23.8-35.5)
[2021-09-10] MEDS ORDERED: OCTREOTIDE ACETATE 500 MCG in SODIUM CHLORIDE 0.9% 250ML 250 ML IV STA (15:39)
[2021-09-10 15:40] LABS: ALBUMIN 2.4 g/dL (3.5-5.0); ALBUMIN/GLOBULIN RATIO 0.7 (0.8-2.0); ANION GAP 15.8 mmol/L (8-16); CALCIUM 8.1 mg/dL (8.4-10.2); CREATININE, SERUM 1.1 mg/dL (0.57-1.11); POTASSIUM 3.8 mmol/L (3.5-5.1)
[2021-09-10] MEDS ORDERED: Morphine 2mg Syringe 2 MG/ML SYR IV PRN (15:45)
[2021-09-10 15:48] LABS: CREATINE KINASE MB 1.6 ng/mL (0-5.0)
[2021-09-10 16:17] LABS: CLARITY,URINE SL CLOUDY (CLEAR); COLOR,URINE YELLOW (YELLOW)
[2021-09-10 16:18] LABS: LEUKOCYTE ESTERASE ,URINE TRACE (NEGATIVE); NITRITE,URINE NEGATIVE (NEGATIVE); PROTEIN,URINE DIPSTICK 1+ (NEGATIVE)
[2021-09-10 16:20] LABS: KETONES,URINE TRACE (NEGATIVE); URINE UROBILINOGEN 0.2 mg/dL (0.2 - 1)
[2021-09-10 16:26] LABS: BACTERIA,URINE FEW /HPF; EPITHELIAL CELLS,URINE MODERATE /LPF; RBC,URINE 0-5 /HPF (0-5); TRANSITIONAL EPI CELLS,URINE MODERATE
[2021-09-10] MEDS ORDERED: SODIUM CHLORIDE 0.9% 250ML 250 ML IV ONE (16:30)
[2021-09-10] MEDS ORDERED: IOPAMIDOL 370 MG/ML 100 ML INFUS..BTL INJ ONE (16:50)
[2021-09-10] MEDS ORDERED: SODIUM CHLORIDE 0.9% 100 ML ONE (16:50)
[2021-09-10] MEDS: SODIUM CHLORIDE 0.9% 1000ML 1,000 ML IV SCH (17:33)
[2021-09-10] MEDS: OCTREOTIDE ACETATE 500 MCG in SODIUM CHLORIDE 0.9% 250ML 250 ML IV SCH (17:34)
[2021-09-10 22:00] VITALS: BP 122/66
[2021-09-10 22:11] VITALS: BP 122/66
[2021-09-10] MEDS ORDERED: MECLIZINE HCL12.5 MG PO (22:36)
[2021-09-10] MEDS ORDERED: SODIUM CHLORIDE 0.9% 250ML 250 ML ONE (23:21)
[2021-09-11] VITALS (8 sets, daily range): BP systolic 136–154; BP diastolic 64–91
[2021-09-11] MEDS ORDERED: PHYTONADIONE 10 MG/ML AMP IV ONE ×2 (00:15→12:15)
[2021-09-11] MEDS: OCTREOTIDE ACETATE 500 MCG in SODIUM CHLORIDE 0.9% 250ML 250 ML IV SCH ×3 (03:00→13:46)
[2021-09-11] MEDS: SODIUM CHLORIDE 0.9% 1000ML 1,000 ML IV SCH ×4 (04:46→23:45)
[2021-09-11 08:03] LABS: BASOPHILS # (AUTO) 0.1 (0.0-0.1); BASOPHILS % 0.8 % (0.0-1.0); EOSINOPHILS # (AUTO) 0.2 (0.0-0.4); EOSINOPHILS % 2.8 % (0.0-6.0); HEMATOCRIT 30.7 % (34.2-44.1); HEMOGLOBIN 9.6 g/dL (12.0-16.0); LYMPHOCYTES # (AUTO) 2.5 (1.0-3.2); LYMPHOCYTES % 41.5 % (18.0-39.1); MEAN CORPUSCULAR HEMOGLOBIN 28.9 pg (28-32); MEAN CORPUSCULAR HGB CONC 31.3 g/dL (31-35); MEAN CORPUSCULAR VOLUME 92.5 fL (81-99); MONOCYTES # (AUTO) 0.4 (0.2-0.8); MONOCYTES % 6.9 % (4.4-11.3); NEUTROPHILS # (AUTO) 2.9 (2.1-6.9); NEUTROPHILS % 47.8 % (38.7-80.0); PLATELET COUNT 139 x10e3/uL (140-360); RED BLOOD COUNT 3.32 x10e6/uL (3.6-5.1); RED CELL DISTRIBUTION WIDTH 16.6 % (11.7-14.4)
[2021-09-11 08:26] LABS: ANION GAP 13.6 mmol/L (8-16); CALCIUM 7.6 mg/dL (8.4-10.2); CREATININE, SERUM 1.09 mg/dL (0.57-1.11); POTASSIUM 3.6 mmol/L (3.5-5.1)
[2021-09-11 11:32] LABS: INR 1.05; PROTHROMBIN TIME 14.6 seconds (11.9-14.5)
[2021-09-11] MEDS ORDERED: METOPROLOL TART25 MG PO (12:21)
[2021-09-11] MEDS ORDERED: LOSARTAN POTASS25 MG PO (12:22)
[2021-09-11] MEDS ORDERED: CLOPIDOGREL75 MG PO (12:22)
[2021-09-11] MEDS ORDERED: ARAVA20 MG PO (12:22)
[2021-09-11] MEDS ORDERED: LIPITOR20 MG PO (12:22)
[2021-09-11] MEDS ORDERED: ULTRAM50 MG PO (12:22)
[2021-09-11] MEDS ORDERED: ASPIRIN81 MG PO (12:22)
[2021-09-11] MEDS ORDERED: MIDAZOLAM HCL 2 MG/2 ML VIAL ONE (12:32)
[2021-09-11] MEDS ORDERED: FENTANYL CITRATE/PF 100MCG/2 ML INJ ONE (12:32)
[2021-09-11] MEDS ORDERED: PROPOFOL IV EMULSION 10 MG/ML 20 ML VIAL ONE (13:01)
[2021-09-11] MEDS ORDERED: LIDOCAINE HCL 2% LOCAL INJ 5 ML SDV VIAL INJ ONE (13:01)
[2021-09-11] MEDS ORDERED: POVIDONE IODINE 0.05% 0.05 % ML PO ONE (13:01)
[2021-09-11] MEDS ORDERED: ACETAMINOPHEN 325 MG TAB PO PRN (16:00)
[2021-09-11] MEDS: METOPROLOL TARTRATE 25 MG TAB PO SCH (17:00)
[2021-09-11] MEDS: TRAMADOL HCL 50 MG TAB PO SCH (17:19)
[2021-09-11] MEDS: SUCRALFATE 1 GM TAB PO SCH (21:05)
[2021-09-11] MEDS: ATORVASTATIN 40 MG TAB PO SCH (21:05)
[2021-09-12] VITALS (9 sets, daily range): BP systolic 111–166; BP diastolic 68–86
[2021-09-12] MEDS: SUCRALFATE 1 GM TAB PO SCH ×4 (07:30→21:17)
[2021-09-12] MEDS: TRAMADOL HCL 50 MG TAB PO SCH ×3 (07:39→08:47)
[2021-09-12] MEDS: LEFLUNOMIDE 20 MG PO SCH (08:43)
[2021-09-12] MEDS: LOSARTAN POTASSIUM 25 MG TAB PO SCH (08:48)
[2021-09-12] MEDS: METOPROLOL TARTRATE 25 MG TAB PO SCH ×2 (08:49→16:32)
[2021-09-12] MEDS: ONDANSETRON HCL INJ 2MG/ML 2ML 2 MG/ML VIAL IV PRN ×2 (10:08→16:37)
[2021-09-12] MEDS: SODIUM CHLORIDE 0.9% 1000ML 1,000 ML IV SCH ×3 (10:09→21:20)
[2021-09-12] MEDS: OCTREOTIDE ACETATE 500 MCG in SODIUM CHLORIDE 0.9% 250ML 250 ML IV SCH (15:05)
[2021-09-12] MEDS: ATORVASTATIN 40 MG TAB PO SCH (21:17)
[2021-09-13] VITALS (10 sets, daily range): BP systolic 92–136; BP diastolic 63–79
[2021-09-13 00:12] LABS: % IRON SATURATION 21 % (15-50); IRON 58 ug/dL (50-170); TOTAL IRON BINDING CAPACITY 281 ug/dL (261-478); TRANSFERRIN 201 mg/dL (180-382)
[2021-09-13] MEDS: TRAMADOL HCL 50 MG TAB PO SCH ×5 (00:32→17:23)
[2021-09-13] MEDS: OCTREOTIDE ACETATE 500 MCG in SODIUM CHLORIDE 0.9% 250ML 250 ML IV SCH ×3 (04:33→14:52)
[2021-09-13] MEDS: METOCLOPRAMIDE HCL 10 MG/2ML VIAL IV SCH ×3 (05:51→17:23)
[2021-09-13] MEDS: SUCRALFATE 1 GM TAB PO SCH ×4 (07:15→20:21)
[2021-09-13] MEDS: SODIUM CHLORIDE 0.9% 1000ML 1,000 ML IV SCH ×3 (07:45→23:45)
[2021-09-13] MEDS: LOSARTAN POTASSIUM 25 MG TAB PO SCH (09:00)
[2021-09-13] MEDS: LEFLUNOMIDE 20 MG PO SCH (09:00)
[2021-09-13] MEDS: METOPROLOL TARTRATE 25 MG TAB PO SCH ×2 (09:14→17:00)
[2021-09-13] MEDS: ONDANSETRON HCL INJ 2MG/ML 2ML 2 MG/ML VIAL IV PRN (09:16)
[2021-09-13 10:39] LABS: EOSINOPHILS # (AUTO) 0.1 (0.0-0.4); HEMATOCRIT 26.9 % (34.2-44.1); HEMOGLOBIN 8.2 g/dL (12.0-16.0); LYMPHOCYTES # (AUTO) 1.1 (1.0-3.2); LYMPHOCYTES % 44.5 % (18.0-39.1); MEAN CORPUSCULAR HEMOGLOBIN 29.5 pg (28-32); MEAN CORPUSCULAR HGB CONC 30.5 g/dL (31-35); MEAN CORPUSCULAR VOLUME 96.8 fL (81-99); MONOCYTES # (AUTO) 0.1 (0.2-0.8); MONOCYTES % 3.2 % (4.4-11.3); NEUTROPHILS # (AUTO) 1.2 (2.1-6.9); NEUTROPHILS % 48.3 % (38.7-80.0); PLATELET COUNT 115 x10e3/uL (140-360); RED BLOOD COUNT 2.78 x10e6/uL (3.6-5.1); RED CELL DISTRIBUTION WIDTH 17.3 % (11.7-14.4)
[2021-09-13 11:00] LABS: ANION GAP 11.1 mmol/L (8-16); CREATININE, SERUM 0.82 mg/dL (0.57-1.11); POTASSIUM 3.1 mmol/L (3.5-5.1)
[2021-09-13 11:01] LABS: CALCIUM 6.6 mg/dL (8.4-10.2)
[2021-09-13] MEDS ORDERED: POTASSIUM CHLORIDE 10MEQ EA PO ONE (14:15)
[2021-09-13] MEDS: ATORVASTATIN 40 MG TAB PO SCH (20:22)
[2021-09-13] MEDS ORDERED: FOLIC ACID 1 MG TAB PO ONE (23:30)
[2021-09-13] MEDS ORDERED: CYANOCOBALAMIN INJ 1,000 MCG/ML VIAL IM ONE (23:30)
[2021-09-14] VITALS (7 sets, daily range): BP systolic 105–145; BP diastolic 60–82
[2021-09-14] MEDS: METOCLOPRAMIDE HCL 10 MG/2ML VIAL IV SCH ×4 (00:54→18:00)
[2021-09-14] MEDS: TRAMADOL HCL 50 MG TAB PO SCH ×4 (00:55→18:00)
[2021-09-14] MEDS: OCTREOTIDE ACETATE 500 MCG in SODIUM CHLORIDE 0.9% 250ML 250 ML IV SCH ×4 (00:55→20:45)
[2021-09-14] MEDS: SUCRALFATE 1 GM TAB PO SCH ×4 (07:30→20:35)
[2021-09-14] MEDS: LEFLUNOMIDE 20 MG PO SCH (09:00)
[2021-09-14] MEDS: FOLIC ACID 1 MG TAB PO SCH (09:00)
[2021-09-14] MEDS: METOPROLOL TARTRATE 25 MG TAB PO SCH ×2 (09:00→17:00)
[2021-09-14] MEDS ORDERED: IRON SUCROSE 100 MG in SODIUM CHLORIDE 0.9% 100 ML 100 ML IV SCH (09:00)
[2021-09-14] MEDS: POTASSIUM CHLORIDE 10MEQ EA PO SCH (09:00)
[2021-09-14] MEDS: LOSARTAN POTASSIUM 25 MG TAB PO SCH (09:00)
[2021-09-14] MEDS ORDERED: CYANOCOBALAMIN INJ 1,000 MCG/ML VIAL IM SCH (09:00)
[2021-09-14] MEDS: SODIUM CHLORIDE 0.9% 1000ML 1,000 ML IV SCH ×3 (09:50→23:45)
[2021-09-14 14:58] LABS: BASOPHILS % 0.2 % (0.0-1.0); EOSINOPHILS # (AUTO) 0.4 (0.0-0.4); EOSINOPHILS % 7.1 % (0.0-6.0); LYMPHOCYTES # (AUTO) 1.8 (1.0-3.2); LYMPHOCYTES % 31.7 % (18.0-39.1); MEAN CORPUSCULAR HEMOGLOBIN 29.7 pg (28-32); MEAN CORPUSCULAR HGB CONC 30.7 g/dL (31-35); MEAN CORPUSCULAR VOLUME 96.7 fL (81-99); MONOCYTES # (AUTO) 0.3 (0.2-0.8); MONOCYTES % 5.8 % (4.4-11.3); NEUTROPHILS # (AUTO) 3.1 (2.1-6.9); NEUTROPHILS % 54.8 % (38.7-80.0); PLATELET COUNT 109 x10e3/uL (140-360); RED BLOOD COUNT 1.82 x10e6/uL (3.6-5.1); RED CELL DISTRIBUTION WIDTH 17.3 % (11.7-14.4)
[2021-09-14 15:01] LABS: HEMOGLOBIN 5.4 g/dL (12.0-16.0)
[2021-09-14 15:02] LABS: HEMATOCRIT 17.6 % (34.2-44.1)
[2021-09-14 15:11] LABS: ANION GAP 9.8 mmol/L (8-16); CREATININE, SERUM 0.85 mg/dL (0.57-1.11); POTASSIUM 3.8 mmol/L (3.5-5.1)
[2021-09-14 15:13] LABS: CALCIUM 6.2 mg/dL (8.4-10.2)
[2021-09-14] MEDS ORDERED: SODIUM CHLORIDE 0.9% 250ML 250 ML IV ONE (15:30)
[2021-09-14 16:12] LABS: INR 1.14; PROTHROMBIN TIME 15.6 seconds (11.9-14.5)
[2021-09-14] MEDS ORDERED: IOPAMIDOL 370 MG/ML 100 ML INFUS..BTL INJ ONE (17:39)
[2021-09-14] MEDS ORDERED: SODIUM CHLORIDE 0.9% 100 ML ONE (17:39)
[2021-09-14] MEDS: ATORVASTATIN 40 MG TAB PO SCH (20:35)
[2021-09-14] MEDS: CYANOCOBALAMIN INJ 1,000 MCG/ML VIAL IM SCH (20:35)
[2021-09-14] MEDS: IRON SUCROSE 100 MG in SODIUM CHLORIDE 0.9% 100 ML 100 ML IV SCH (21:00)
[2021-09-15] VITALS (13 sets, daily range): BP systolic 92–190; BP diastolic 76–165
[2021-09-15] MEDS: TRAMADOL HCL 50 MG TAB PO SCH ×4 (00:54→18:31)
[2021-09-15] MEDS: METOCLOPRAMIDE HCL 10 MG/2ML VIAL IV SCH ×4 (00:54→18:28)
[2021-09-15] MEDS ORDERED: FUROSEMIDE INJ 10 MG/ML 4 ML VIAL IV STA (03:16)
[2021-09-15] MEDS ORDERED: DIPHENHYDRAMINE HCL INJ 50 MG/ML VIAL ONE (03:22)
[2021-09-15] MEDS ORDERED: DIPHENHYDRAMINE HCL INJ 50 MG/ML VIAL IV PRN (03:30)
[2021-09-15] MEDS ORDERED: METHYLPREDNISOLONE SOD SUCC 125 MG/2ML VIAL IV ONE (03:45)
[2021-09-15] MEDS ORDERED: FAMOTIDINE 20 MG/2 ML VIAL IV STA (03:45)
[2021-09-15] MEDS ORDERED: EPINEPHRINE HCL 1:1000 1ML 1 MG/ML AMP INJ ONE (03:45)
[2021-09-15] MEDS ORDERED: EPINEPHRINE HCL 1:1000 1ML 1 MG/ML AMP ONE (03:54)
[2021-09-15] MEDS ORDERED: HYDRALAZINE HCL 20 MG/ML VIAL IV ONE (05:15)
[2021-09-15 06:15] LABS: BASOPHILS % 0.1 % (0.0-1.0); EOSINOPHILS # (AUTO) 0.4 (0.0-0.4); EOSINOPHILS % 4.7 % (0.0-6.0); HEMATOCRIT 30.8 % (34.2-44.1); HEMOGLOBIN 9.7 g/dL (12.0-16.0); LYMPHOCYTES # (AUTO) 3.8 (1.0-3.2); LYMPHOCYTES % 49.2 % (18.0-39.1); MEAN CORPUSCULAR HEMOGLOBIN 28.7 pg (28-32); MEAN CORPUSCULAR HGB CONC 31.5 g/dL (31-35); MEAN CORPUSCULAR VOLUME 91.1 fL (81-99); MONOCYTES # (AUTO) 0.4 (0.2-0.8); MONOCYTES % 4.6 % (4.4-11.3); NEUTROPHILS # (AUTO) 3.2 (2.1-6.9); NEUTROPHILS % 41.3 % (38.7-80.0); PLATELET COUNT 148 x10e3/uL (140-360); RED BLOOD COUNT 3.38 x10e6/uL (3.6-5.1)
[2021-09-15 06:29] LABS: ALBUMIN 2.6 g/dL (3.5-5.0); ALBUMIN/GLOBULIN RATIO 0.8 (0.8-2.0); ANION GAP 14.4 mmol/L (8-16); CALCIUM 7.6 mg/dL (8.4-10.2); CREATININE, SERUM 0.94 mg/dL (0.57-1.11); POTASSIUM 3.4 mmol/L (3.5-5.1)
[2021-09-15] MEDS: SODIUM CHLORIDE 0.9% 1000ML 1,000 ML IV SCH (07:02)
[2021-09-15] MEDS: SUCRALFATE 1 GM TAB PO SCH ×5 (07:30→20:41)
[2021-09-15] MEDS: OCTREOTIDE ACETATE 500 MCG in SODIUM CHLORIDE 0.9% 250ML 250 ML IV SCH ×2 (08:25→18:33)
[2021-09-15] MEDS ORDERED: POTASSIUM CHLORIDE 10MEQ EA PO ONE (11:00)
[2021-09-15] MEDS: MECLIZINE HCL 12.5 MG TAB PO PRN (12:50)
[2021-09-15] MEDS: FOLIC ACID 1 MG TAB PO SCH (12:51)
[2021-09-15] MEDS: LOSARTAN POTASSIUM 25 MG TAB PO SCH (12:57)
[2021-09-15] MEDS: POTASSIUM CHLORIDE 10MEQ EA PO SCH (13:01)
[2021-09-15] MEDS: METOPROLOL TARTRATE 25 MG TAB PO SCH ×2 (13:05→18:30)
[2021-09-15 13:06] LABS: CREATINE KINASE MB 1.8 ng/mL (0-5.0)
[2021-09-15] MEDS: LEFLUNOMIDE 20 MG PO SCH (13:10)
[2021-09-15] MEDS ORDERED: FUROSEMIDE INJ 10 MG/ML 4 ML VIAL IV ONE (16:00)
[2021-09-15] MEDS: IRON SUCROSE 100 MG in SODIUM CHLORIDE 0.9% 100 ML 100 ML IV SCH (20:40)
[2021-09-15] MEDS: CYANOCOBALAMIN INJ 1,000 MCG/ML VIAL IM SCH (20:41)
[2021-09-15] MEDS: ATORVASTATIN 40 MG TAB PO SCH (20:58)
[2021-09-16] VITALS (7 sets, daily range): BP systolic 111–165; BP diastolic 65–93
[2021-09-16] MEDS: MECLIZINE HCL 12.5 MG TAB PO PRN (01:02)
[2021-09-16] MEDS: TRAMADOL HCL 50 MG TAB PO SCH ×4 (01:03→17:41)
[2021-09-16] MEDS: METOCLOPRAMIDE HCL 10 MG/2ML VIAL IV SCH ×4 (01:05→17:42)
[2021-09-16 05:19] LABS: BASOPHILS % 0.3 % (0.0-1.0); HEMATOCRIT 28.4 % (34.2-44.1); HEMOGLOBIN 9.2 g/dL (12.0-16.0); LYMPHOCYTES # (AUTO) 1.5 (1.0-3.2); MEAN CORPUSCULAR HGB CONC 32.4 g/dL (31-35); MEAN CORPUSCULAR VOLUME 86.6 fL (81-99); MONOCYTES # (AUTO) 0.5 (0.2-0.8); MONOCYTES % 5.8 % (4.4-11.3); NEUTROPHILS # (AUTO) 6.7 (2.1-6.9); NEUTROPHILS % 76.3 % (38.7-80.0); PLATELET COUNT 131 x10e3/uL (140-360); RED BLOOD COUNT 3.28 x10e6/uL (3.6-5.1); RED CELL DISTRIBUTION WIDTH 17.4 % (11.7-14.4)
[2021-09-16 05:41] LABS: ALBUMIN 2.7 g/dL (3.5-5.0); ALBUMIN/GLOBULIN RATIO 0.9 (0.8-2.0); ANION GAP 16.3 mmol/L (8-16); CALCIUM 7.9 mg/dL (8.4-10.2); POTASSIUM 3.3 mmol/L (3.5-5.1)
[2021-09-16] MEDS: LEFLUNOMIDE 20 MG PO SCH (09:00)
[2021-09-16] MEDS: METOPROLOL TARTRATE 25 MG TAB PO SCH ×2 (09:45→17:42)
[2021-09-16] MEDS: POTASSIUM CHLORIDE 10MEQ EA PO SCH (09:46)
[2021-09-16] MEDS: LOSARTAN POTASSIUM 25 MG TAB PO SCH (09:47)
[2021-09-16] MEDS: FOLIC ACID 1 MG TAB PO SCH (09:47)
[2021-09-16] MEDS: SUCRALFATE 1 GM TAB PO SCH ×4 (09:47→20:52)
[2021-09-16] MEDS ORDERED: POTASSIUM CHLORIDE 10MEQ EA PO ONE (11:30)
[2021-09-16] MEDS: ATORVASTATIN 40 MG TAB PO SCH (20:52)
[2021-09-16] MEDS: CYANOCOBALAMIN INJ 1,000 MCG/ML VIAL IM SCH (20:52)
[2021-09-16] MEDS: IRON SUCROSE 100 MG in SODIUM CHLORIDE 0.9% 100 ML 100 ML IV SCH (21:56)
[2021-09-17] VITALS: BP_SYST 126; BP_SYST 134; BP_DIAS 65; BP_DIAS 67
[2021-09-17] MEDS: METOCLOPRAMIDE HCL 10 MG/2ML VIAL IV SCH ×4 (05:07→18:03)
[2021-09-17] MEDS: TRAMADOL HCL 50 MG TAB PO SCH ×4 (05:08→18:04)
[2021-09-17 06:15] LABS: BASOPHILS % 0.6 % (0.0-1.0); EOSINOPHILS # (AUTO) 0.2 (0.0-0.4); HEMATOCRIT 28.6 % (34.2-44.1); HEMOGLOBIN 8.2 g/dL (12.0-16.0); LYMPHOCYTES # (AUTO) 2.9 (1.0-3.2); LYMPHOCYTES % 43.4 % (18.0-39.1); MEAN CORPUSCULAR HEMOGLOBIN 28.2 pg (28-32); MEAN CORPUSCULAR HGB CONC 28.7 g/dL (31-35); MEAN CORPUSCULAR VOLUME 98.3 fL (81-99); MONOCYTES # (AUTO) 0.4 (0.2-0.8); MONOCYTES % 6.5 % (4.4-11.3); NEUTROPHILS # (AUTO) 3.1 (2.1-6.9); NEUTROPHILS % 46.2 % (38.7-80.0); PLATELET COUNT 130 x10e3/uL (140-360); RED BLOOD COUNT 2.91 x10e6/uL (3.6-5.1); RED CELL DISTRIBUTION WIDTH 18.1 % (11.7-14.4)
[2021-09-17 06:38] LABS: ALBUMIN 2.4 g/dL (3.5-5.0); ALBUMIN/GLOBULIN RATIO 0.9 (0.8-2.0); ANION GAP 12.8 mmol/L (8-16); CALCIUM 7.9 mg/dL (8.4-10.2); CREATININE, SERUM 1.24 mg/dL (0.57-1.11); POTASSIUM 3.8 mmol/L (3.5-5.1)
[2021-09-17 08:52] VITALS: BP 126/65
[2021-09-17] MEDS: METOPROLOL TARTRATE 25 MG TAB PO SCH ×2 (09:00→17:00)
[2021-09-17] MEDS: LEFLUNOMIDE 20 MG PO SCH (09:00)
[2021-09-17 09:24] VITALS: BP 136/65
[2021-09-17] MEDS: FOLIC ACID 1 MG TAB PO SCH (09:49)
[2021-09-17] MEDS: POTASSIUM CHLORIDE 10MEQ EA PO SCH (09:50)
[2021-09-17] MEDS: SUCRALFATE 1 GM TAB PO SCH ×4 (09:52→20:22)
[2021-09-17] MEDS: LOSARTAN POTASSIUM 25 MG TAB PO SCH (09:53)
[2021-09-17 12:13] VITALS: BP 156/74
[2021-09-17 17:30] VITALS: BP 111/59
[2021-09-17 20:00] VITALS: BP 134/74
[2021-09-17] MEDS: CYANOCOBALAMIN INJ 1,000 MCG/ML VIAL IM SCH (20:22)
[2021-09-17] MEDS: ATORVASTATIN 40 MG TAB PO SCH (20:24)
[2021-09-17] MEDS: IRON SUCROSE 100 MG in SODIUM CHLORIDE 0.9% 100 ML 100 ML IV SCH (20:25)
[2021-09-18] VITALS (7 sets, daily range): BP systolic 123–174; BP diastolic 72–80
[2021-09-18] MEDS: METOCLOPRAMIDE HCL 10 MG/2ML VIAL IV SCH ×5 (01:22→23:05)
[2021-09-18 05:05] LABS: BASOPHILS % 0.6 % (0.0-1.0); EOSINOPHILS # (AUTO) 0.2 (0.0-0.4); HEMOGLOBIN 7.7 g/dL (12.0-16.0); LYMPHOCYTES # (AUTO) 2.4 (1.0-3.2); LYMPHOCYTES % 49.4 % (18.0-39.1); MEAN CORPUSCULAR HEMOGLOBIN 28.4 pg (28-32); MEAN CORPUSCULAR HGB CONC 30.8 g/dL (31-35); MEAN CORPUSCULAR VOLUME 92.3 fL (81-99); MONOCYTES # (AUTO) 0.3 (0.2-0.8); MONOCYTES % 7.1 % (4.4-11.3); NEUTROPHILS # (AUTO) 1.8 (2.1-6.9); NEUTROPHILS % 37.7 % (38.7-80.0); PLATELET COUNT 124 x10e3/uL (140-360); RED BLOOD COUNT 2.71 x10e6/uL (3.6-5.1); RED CELL DISTRIBUTION WIDTH 17.8 % (11.7-14.4)
[2021-09-18 05:33] LABS: INR 0.97; PROTHROMBIN TIME 13.8 seconds (11.9-14.5)
[2021-09-18] MEDS: TRAMADOL HCL 50 MG TAB PO SCH ×3 (05:39→11:39)
[2021-09-18 05:42] LABS: ANION GAP 13.8 mmol/L (8-16); CALCIUM 7.7 mg/dL (8.4-10.2); CREATININE, SERUM 1.08 mg/dL (0.57-1.11); POTASSIUM 3.8 mmol/L (3.5-5.1)
[2021-09-18] MEDS: LEFLUNOMIDE 20 MG PO SCH (07:52)
[2021-09-18] MEDS: FOLIC ACID 1 MG TAB PO SCH (08:23)
[2021-09-18] MEDS: METOPROLOL TARTRATE 25 MG TAB PO SCH ×2 (08:24→16:23)
[2021-09-18] MEDS: SUCRALFATE 1 GM TAB PO SCH ×4 (08:25→21:24)
[2021-09-18] MEDS: POTASSIUM CHLORIDE 10MEQ EA PO SCH (08:27)
[2021-09-18] MEDS: LOSARTAN POTASSIUM 25 MG TAB PO SCH (08:27)
[2021-09-18] MEDS ORDERED: LIDOCAINE HCL 2% LOCAL INJ 5 ML SDV VIAL INJ ONE (13:23)
[2021-09-18] MEDS ORDERED: PROPOFOL IV EMULSION 10 MG/ML 20 ML VIAL ONE (13:23)
[2021-09-18] MEDS ORDERED: BISACODYL 5 MG TAB EC PO ONE ×4 (16:15→23:00)
[2021-09-18] MEDS: ATORVASTATIN 40 MG TAB PO SCH (21:22)
[2021-09-18] MEDS: IRON SUCROSE 100 MG in SODIUM CHLORIDE 0.9% 100 ML 100 ML IV SCH (21:23)
[2021-09-18] MEDS: CYANOCOBALAMIN INJ 1,000 MCG/ML VIAL IM SCH (21:23)
[2021-09-18] MEDS ORDERED: CITRATE OF MAGNESIA 300ML BOTTLE PO ONE (23:00)
[2021-09-19] VITALS (8 sets, daily range): BP systolic 125–166; BP diastolic 62–81
[2021-09-19] MEDS ORDERED: BISACODYL 5 MG TAB EC PO ONE (05:00)
[2021-09-19] MEDS: METOCLOPRAMIDE HCL 10 MG/2ML VIAL IV SCH ×3 (05:19→16:38)
[2021-09-19 06:54] LABS: ANION GAP 16.5 mmol/L (8-16); CALCIUM 7.9 mg/dL (8.4-10.2); CREATININE, SERUM 0.96 mg/dL (0.57-1.11); POTASSIUM 3.5 mmol/L (3.5-5.1)
[2021-09-19 06:59] LABS: BASOPHILS % 0.5 % (0.0-1.0); EOSINOPHILS # (AUTO) 0.1 (0.0-0.4); EOSINOPHILS % 2.1 % (0.0-6.0); HEMATOCRIT 30.7 % (34.2-44.1); HEMOGLOBIN 8.4 g/dL (12.0-16.0); LYMPHOCYTES # (AUTO) 1.8 (1.0-3.2); MEAN CORPUSCULAR HEMOGLOBIN 28.1 pg (28-32); MEAN CORPUSCULAR HGB CONC 27.4 g/dL (31-35); MEAN CORPUSCULAR VOLUME 102.7 fL (81-99); MONOCYTES # (AUTO) 0.5 (0.2-0.8); MONOCYTES % 7.6 % (4.4-11.3); NEUTROPHILS # (AUTO) 4.1 (2.1-6.9); NEUTROPHILS % 62.5 % (38.7-80.0); PLATELET COUNT 142 x10e3/uL (140-360); RED BLOOD COUNT 2.99 x10e6/uL (3.6-5.1); RED CELL DISTRIBUTION WIDTH 18.6 % (11.7-14.4)
[2021-09-19] MEDS: SUCRALFATE 1 GM TAB PO SCH ×4 (07:30→20:43)
[2021-09-19] MEDS: METOPROLOL TARTRATE 25 MG TAB PO SCH ×2 (09:00→16:38)
[2021-09-19] MEDS: LEFLUNOMIDE 20 MG PO SCH (09:00)
[2021-09-19] MEDS: POTASSIUM CHLORIDE 10MEQ EA PO SCH (09:00)
[2021-09-19 09:43] LABS: ANISOCYTOSIS SLIGHT; HYPOCHROMASIA SLIGHT; PLATELET ESTIMATE ADEQUATE; PLATELET MORPHOLOGY COMMENT NORMAL; RBC MORPHOLOGY COMMENT NORMAL
[2021-09-19] MEDS ORDERED: HYOSCYAMINE SULFATE 0.5 MG/ML INJ ONE (13:24)
[2021-09-19] MEDS ORDERED: LIDOCAINE HCL 2% LOCAL INJ 5 ML SDV VIAL INJ ONE (13:24)
[2021-09-19] MEDS ORDERED: PROPOFOL IV EMULSION 10 MG/ML 20 ML VIAL ONE (13:24)
[2021-09-19] MEDS: LOSARTAN POTASSIUM 25 MG TAB PO SCH (16:38)
[2021-09-19] MEDS: FOLIC ACID 1 MG TAB PO SCH (16:38)
[2021-09-19] MEDS: ATORVASTATIN 40 MG TAB PO SCH (20:43)
[2021-09-19] MEDS: IRON SUCROSE 100 MG in SODIUM CHLORIDE 0.9% 100 ML 100 ML IV SCH (20:44)
[2021-09-19] MEDS: CYANOCOBALAMIN INJ 1,000 MCG/ML VIAL IM SCH (20:44)
[2021-09-20] MEDS: METOCLOPRAMIDE HCL 10 MG/2ML VIAL IV SCH ×2 (00:44→06:00)
[2021-09-20 00:55] VITALS: BP 135/81
[2021-09-20 05:52] VITALS: BP 147/67
[2021-09-20 07:34] VITALS: BP 132/76
[2021-09-20 08:09] VITALS: BP 132/76
[2021-09-20] MEDS: LEFLUNOMIDE 20 MG PO SCH (09:00)
[2021-09-20] MEDS: LOSARTAN POTASSIUM 25 MG TAB PO SCH (09:18)
[2021-09-20] MEDS: SUCRALFATE 1 GM TAB PO SCH (09:18)
[2021-09-20] MEDS: FOLIC ACID 1 MG TAB PO SCH (09:18)
[2021-09-20] MEDS: METOPROLOL TARTRATE 25 MG TAB PO SCH (09:19)
[2021-09-20] MEDS: POTASSIUM CHLORIDE 10MEQ EA PO SCH (09:19)
[2021-09-20 11:01] LABS: BASOPHILS # (AUTO) 0.1 (0.0-0.1); BASOPHILS % 0.6 % (0.0-1.0); EOSINOPHILS # (AUTO) 0.2 (0.0-0.4); EOSINOPHILS % 1.9 % (0.0-6.0); HEMATOCRIT 28.2 % (34.2-44.1); HEMOGLOBIN 8.5 g/dL (12.0-16.0); LYMPHOCYTES % 11.4 % (18.0-39.1); MEAN CORPUSCULAR HEMOGLOBIN 28.4 pg (28-32); MEAN CORPUSCULAR HGB CONC 30.1 g/dL (31-35); MEAN CORPUSCULAR VOLUME 94.3 fL (81-99); MONOCYTES # (AUTO) 0.5 (0.2-0.8); MONOCYTES % 6.1 % (4.4-11.3); NEUTROPHILS % 79.8 % (38.7-80.0); PLATELET COUNT 132 x10e3/uL (140-360); RED BLOOD COUNT 2.99 x10e6/uL (3.6-5.1); RED CELL DISTRIBUTION WIDTH 18.4 % (11.7-14.4)
[2021-09-20 11:40] VITALS: BP 150/81
== END 2021-09-20 22:12 | disposition home health service (06) | DRG 378 ==
LOC: ER 14:48 → ERHOLD 15:45 → OBSVTOIN 15:45 → MED/SURG 20:24 → ICU 09-15 04:39 → MED/SURG 09-15 21:21 → MED/SURG2 09-16 15:19
PROC: 30233N1 Transfusion of Nonautologous Red Blood Cells into Peripheral Vein, Percutaneous Approach (ICD-10-PCS; 2021-09-10)
PROC: 0DJ08ZZ Inspection of Upper Intestinal Tract, Via Natural or Artificial Opening Endoscopic (ICD-10-PCS; principal; 2021-09-11 17:53)
PROC: 30233L1 Transfusion of Nonautologous Fresh Plasma into Peripheral Vein, Percutaneous Approach (ICD-10-PCS; 2021-09-15)
PROC: 30233K1 Transfusion of Nonautologous Frozen Plasma into Peripheral Vein, Percutaneous Approach (ICD-10-PCS; 2021-09-15)
PROC: 0DJ08ZZ Inspection of Upper Intestinal Tract, Via Natural or Artificial Opening Endoscopic (ICD-10-PCS; 2021-09-18)
PROC: 0DJD8ZZ Inspection of Lower Intestinal Tract, Via Natural or Artificial Opening Endoscopic (ICD-10-PCS; 2021-09-19)
DX: K26.0 Acute duodenal ulcer with hemorrhage (principal); D62 Acute posthemorrhagic anemia; I50.22 Chronic systolic (congestive) heart failure; I13.0 Hypertensive heart and chronic kidney disease with heart failure and stage 1 through stage 4 chronic kidney disease, or unspecified chronic kidney disease; M19.90 Unspecified osteoarthritis, unspecified site; E78.5 Hyperlipidemia, unspecified; G89.4 Chronic pain syndrome; K20.90 Esophagitis, unspecified without bleeding; K29.70 Gastritis, unspecified, without bleeding; K57.30 Diverticulosis of large intestine without perforation or abscess without bleeding; K64.8 Other hemorrhoids; I25.2 Old myocardial infarction; Z95.5 Presence of coronary angioplasty implant and graft; Z90.49 Acquired absence of other specified parts of digestive tract; I25.10 Atherosclerotic heart disease of native coronary artery without angina pectoris; R13.10 Dysphagia, unspecified; I48.0 Paroxysmal atrial fibrillation; M06.9 Rheumatoid arthritis, unspecified; E87.6 Hypokalemia; R07.9 Chest pain, unspecified; N18.2 Chronic kidney disease, stage 2 (mild); R21 Rash and other nonspecific skin eruption; Z20.822 Contact with and (suspected) exposure to COVID-19
CPT/HCPCS: 36415; 43235; 43450; 45378; 51700; 71045; 74174; 80048; 80053; 81001; 82550; 82553; 82607; 82746; 83540; 83880; 84466; 84484; 85025; 85045; 85610; 85730; 86078; 86850; 86900; 86920; 93005; 94799; 99251; 99284; J0171; J0360; J1200; J1756; J1940; J1980; J2001; J2250; J2353; J2405; J2765; J2930; J3010; J3420; J3430; J7030; J7050; P9016; P9017; Q9967

== ENCOUNTER → 2022-05-09 | Day surgery (SDC) | payer MEDICARE ==
[2022-05-01 15:32] LABS: BASOPHILS # (AUTO) 0.1 (0.0-0.1); BASOPHILS % 1.2 % (0.0-1.0); EOSINOPHILS # (AUTO) 0.5 (0.0-0.4); EOSINOPHILS % 10.2 % (0.0-6.0); HEMATOCRIT 36.2 % (34.2-44.1); HEMOGLOBIN 11.6 g/dL (12.0-16.0); LYMPHOCYTES # (AUTO) 1.8 (1.0-3.2); LYMPHOCYTES % 34.9 % (18.0-39.1); MEAN CORPUSCULAR HEMOGLOBIN 30.5 pg (28-32); MEAN CORPUSCULAR VOLUME 95.3 fL (81-99); MONOCYTES # (AUTO) 0.4 (0.2-0.8); MONOCYTES % 8.1 % (4.4-11.3); NEUTROPHILS # (AUTO) 2.4 (2.1-6.9); NEUTROPHILS % 45.4 % (38.7-80.0); PLATELET COUNT 123 x10e3/uL (140-360); RED CELL DISTRIBUTION WIDTH 14.6 % (11.7-14.4)
[~2022-05-09] MED LIST changes: +ARAVA20 MG PO; +ASPIRIN81 MG PO; +CLOPIDOGREL75 MG PO; +EPHEDRINE SULFATE INJ 50 MG/ML VIAL ONE; +FENTANYL CITRATE/PF 100MCG/2 ML INJ ONE; +GLYCOPYRROLATE INJ 0.2 MG/ML VIAL ONE; +LIPITOR20 MG PO; +LOSARTAN POTASS25 MG PO; +MECLIZINE HCL12.5 MG PO; +METOPROLOL TART25 MG PO; +POVIDONE IODINE 0.05% 0.05 % ML PO ONE; +ULTRAM50 MG PO
[2022-05-09 13:30] VITALS: BP 140/79
== END | disposition home or self-care (01) ==
LOC: OR 10:09
PROVIDERS: ATTEND Internal Medicine Gastroenterology
DX: K29.70 Gastritis, unspecified, without bleeding (principal); K26.9 Duodenal ulcer, unspecified as acute or chronic, without hemorrhage or perforation; Z71.3 Dietary counseling and surveillance; R63.0 Anorexia; I48.91 Unspecified atrial fibrillation; I10 Essential (primary) hypertension; I25.2 Old myocardial infarction; E78.5 Hyperlipidemia, unspecified; I44.0 Atrioventricular block, first degree; R00.1 Bradycardia, unspecified; M06.9 Rheumatoid arthritis, unspecified; N20.0 Calculus of kidney; Z01.810 Encounter for preprocedural cardiovascular examination; Z01.812 Encounter for preprocedural laboratory examination; Z79.02 Long term (current) use of antithrombotics/antiplatelets; Z79.82 Long term (current) use of aspirin; Z79.899 Other long term (current) drug therapy; Z68.27 Body mass index [BMI] 27.0-27.9, adult; Z86.2 Personal history of diseases of the blood and blood-forming organs and certain disorders involving the immune mechanism
CPT/HCPCS: 36415; 43239; 85025; 93005; C9113; J3010

== ENCOUNTER → 2022-06-20 | Day surgery (SDC) | payer MEDICARE ==
[2022-06-17 13:46] LABS: BASOPHILS # (AUTO) 0.1 (0.0-0.1); BASOPHILS % 1.1 % (0.0-1.0); EOSINOPHILS # (AUTO) 1.4 (0.0-0.4); EOSINOPHILS % 26.8 % (0.0-6.0); HEMOGLOBIN 10.4 g/dL (12.0-16.0); LYMPHOCYTES # (AUTO) 1.8 (1.0-3.2); LYMPHOCYTES % 33.6 % (18.0-39.1); MEAN CORPUSCULAR HEMOGLOBIN 30.3 pg (28-32); MEAN CORPUSCULAR HGB CONC 32.5 g/dL (31-35); MEAN CORPUSCULAR VOLUME 93.3 fL (81-99); MONOCYTES # (AUTO) 0.4 (0.2-0.8); MONOCYTES % 7.4 % (4.4-11.3); NEUTROPHILS # (AUTO) 1.6 (2.1-6.9); NEUTROPHILS % 30.9 % (38.7-80.0); PLATELET COUNT 152 x10e3/uL (140-360); RED BLOOD COUNT 3.43 x10e6/uL (3.6-5.1); RED CELL DISTRIBUTION WIDTH 16.7 % (11.7-14.4)
[2022-06-17 14:20] LABS: EOSINOPHILS % (MANUAL) 28 % (0-7); LYMPHOCYTES % (MANUAL) 31 % (19-48); MONOCYTES % (MANUAL) 9 % (3.4-9.0); NEUTROPHILS % (MANUAL) 32 % (40-74)
[2022-06-17 14:21] LABS: PLATELET ESTIMATE ADEQUATE; PLATELET MORPHOLOGY COMMENT NORMAL; RBC MORPHOLOGY COMMENT NORMAL
[~2022-06-20] MED LIST changes: -EPHEDRINE SULFATE INJ 50 MG/ML VIAL ONE; -GLYCOPYRROLATE INJ 0.2 MG/ML VIAL ONE; +LACTATED RINGER'S 1,000 ML ONE; +LIDOCAINE HCL 2% LOCAL INJ 5 ML SDV VIAL INJ ONE; -POVIDONE IODINE 0.05% 0.05 % ML PO ONE; +PROPOFOL IV EMULSION 10 MG/ML 20 ML VIAL ONE; +SODIUM CHLORIDE 0.9% 100 ML ONE
[2022-06-20 12:45] VITALS: BP 116/70
== END | disposition home or self-care (01) ==
LOC: OR 08:42
PROVIDERS: ATTEND Internal Medicine Gastroenterology
DX: K26.4 Chronic or unspecified duodenal ulcer with hemorrhage (principal); K29.70 Gastritis, unspecified, without bleeding; K31.89 Other diseases of stomach and duodenum; Z71.3 Dietary counseling and surveillance; I10 Essential (primary) hypertension; Z71.89 Other specified counseling; N20.0 Calculus of kidney; I25.2 Old myocardial infarction; I48.91 Unspecified atrial fibrillation; M06.9 Rheumatoid arthritis, unspecified; Z01.812 Encounter for preprocedural laboratory examination; Z79.02 Long term (current) use of antithrombotics/antiplatelets; Z79.82 Long term (current) use of aspirin; Z79.899 Other long term (current) drug therapy; Z68.27 Body mass index [BMI] 27.0-27.9, adult; Z98.890 Other specified postprocedural states
CPT/HCPCS: 36415; 43235; 85025; C9113; J2001; J2704; J3010; J7050; J7121; 43239

== ENCOUNTER 2022-06-28 11:22 | Observation (INO) | payer MEDICARE ==
[~2022-06-28] VITALS: Ht 157.5 cm; Wt 66.7 kg
[~2022-06-28 11:22] MED LIST changes: +ATORVASTATIN CA20 MG PO; -FENTANYL CITRATE/PF 100MCG/2 ML INJ ONE; -LACTATED RINGER'S 1,000 ML ONE; -LIDOCAINE HCL 2% LOCAL INJ 5 ML SDV VIAL INJ ONE; +METOPROLOL SUCC25 MG PO; +PANTOPRAZOLE SO40 MG PO; +PAROXETINE HCL20 MG PO; -PROPOFOL IV EMULSION 10 MG/ML 20 ML VIAL ONE; -SODIUM CHLORIDE 0.9% 100 ML ONE
[2022-06-28] MEDS: Vancomycin IV 1 GM in SODIUM CHLORIDE 0.9% 250ML 250 ML IV SCH ×2 (12:30→20:10)
[2022-06-28] MEDS: HYDROCODONE/APAP 5MG-325MG TAB PO PRN ×2 (12:33→20:03)
[2022-06-28 12:37] LABS: BASOPHILS # (AUTO) 0.1 (0.0-0.1); EOSINOPHILS # (AUTO) 1.3 (0.0-0.4); EOSINOPHILS % 17.8 % (0.0-6.0); HEMOGLOBIN 11.3 g/dL (12.0-16.0); LYMPHOCYTES # (AUTO) 1.3 (1.0-3.2); LYMPHOCYTES % 19.1 % (18.0-39.1); MEAN CORPUSCULAR HEMOGLOBIN 30.1 pg (28-32); MEAN CORPUSCULAR HGB CONC 32.3 g/dL (31-35); MEAN CORPUSCULAR VOLUME 93.3 fL (81-99); MONOCYTES # (AUTO) 0.5 (0.2-0.8); MONOCYTES % 7.5 % (4.4-11.3); NEUTROPHILS # (AUTO) 3.8 (2.1-6.9); NEUTROPHILS % 54.3 % (38.7-80.0); PLATELET COUNT 159 x10e3/uL (140-360); RED BLOOD COUNT 3.75 x10e6/uL (3.6-5.1); RED CELL DISTRIBUTION WIDTH 16.3 % (11.7-14.4)
[2022-06-28 12:59] LABS: ALBUMIN 3.2 g/dL (3.5-5.0); ALBUMIN/GLOBULIN RATIO 0.7 (0.8-2.0); ANION GAP 13.9 mmol/L (8-16); CALCIUM 8.8 mg/dL (8.4-10.2); CREATININE, SERUM 0.88 mg/dL (0.57-1.11); POTASSIUM 3.9 mmol/L (3.5-5.1)
[2022-06-28] MEDS ORDERED: SODIUM CHLORIDE FLUSH 10 ML SYR INJ PRN (13:30)
[2022-06-28] MEDS ORDERED: ONDANSETRON HCL INJ 2MG/ML 2ML 2 MG/ML VIAL IV PRN (13:30)
[2022-06-28 16:32] VITALS: BP 140/79
[2022-06-28 16:35] VITALS: BP 140/79
[2022-06-28] MEDS ORDERED: PANTOPRAZOLE SO40 MG PO (16:52)
[2022-06-28] MEDS ORDERED: CYMBALTA30 MG PO (16:52)
[2022-06-28] MEDS ORDERED: VITAMIN D250 MC1 PO (16:52)
[2022-06-28 16:54] VITALS: BP 140/79
[2022-06-28 19:26] VITALS: BP 140/79
[2022-06-28] MEDS ORDERED: SODIUM CHLORIDE 0.9% 250ML 250 ML ONE (20:13)
[2022-06-28 20:54] VITALS: BP 134/82
[2022-06-28] MEDS ORDERED: HYDRALAZINE HCL 20 MG/ML VIAL IV PRN (23:00)
[2022-06-29] VITALS (7 sets, daily range): BP systolic 122–153; BP diastolic 67–85
[2022-06-29] MEDS: HYDROCODONE/APAP 5MG-325MG TAB PO PRN ×2 (04:25→20:57)
[2022-06-29 05:59] LABS: BASOPHILS # (AUTO) 0.1 (0.0-0.1); EOSINOPHILS # (AUTO) 1.1 (0.0-0.4); HEMATOCRIT 31.8 % (34.2-44.1); HEMOGLOBIN 9.8 g/dL (12.0-16.0); LYMPHOCYTES # (AUTO) 1.7 (1.0-3.2); LYMPHOCYTES % 26.5 % (18.0-39.1); MEAN CORPUSCULAR HEMOGLOBIN 29.8 pg (28-32); MEAN CORPUSCULAR HGB CONC 30.8 g/dL (31-35); MEAN CORPUSCULAR VOLUME 96.7 fL (81-99); MONOCYTES # (AUTO) 0.6 (0.2-0.8); MONOCYTES % 9.3 % (4.4-11.3); NEUTROPHILS # (AUTO) 2.8 (2.1-6.9); NEUTROPHILS % 44.9 % (38.7-80.0); PLATELET COUNT 120 x10e3/uL (140-360); RED BLOOD COUNT 3.29 x10e6/uL (3.6-5.1); RED CELL DISTRIBUTION WIDTH 16.2 % (11.7-14.4)
[2022-06-29] MEDS: Vancomycin IV 1 GM in SODIUM CHLORIDE 0.9% 250ML 250 ML IV SCH (08:49)
[2022-06-29] MEDS: DULOXETINE HCL 30 MG DELAYED RELEASE PO SCH (08:51)
[2022-06-29] MEDS: PANTOPRAZOLE SOD 40 MG TABEC PO SCH (08:51)
[2022-06-29] MEDS: MECLIZINE HCL 12.5 MG TAB PO SCH ×3 (08:51→20:49)
[2022-06-29] MEDS: LOSARTAN POTASSIUM 25 MG TAB PO SCH (08:52)
[2022-06-29] MEDS: METOPROLOL TARTRATE 25 MG TAB PO SCH ×2 (08:52→17:14)
[2022-06-29] MEDS: ASPIRIN 81 MG CHEW TAB PO SCH (08:53)
[2022-06-29] MEDS: CLOPIDOGREL BISULFATE 75 MG TAB PO SCH (08:53)
[2022-06-29] MEDS: LACTOBACILLUS ACIDOPHILUS CAPSULE PO SCH ×3 (12:51→20:48)
[2022-06-29] MEDS: GABAPENTIN 100 MG CAP PO SCH ×3 (12:51→20:49)
[2022-06-29] MEDS: CELECOXIB 100 MG CAP PO SCH ×2 (12:52→17:13)
[2022-06-29] MEDS: Clindamycin INJ 300 MG/50 ML 50 ML IV SCH ×2 (12:52→20:49)
[2022-06-29] MEDS ORDERED: ATORVASTATIN 20 MG TAB PO SCH (21:00)
[2022-06-30 01:42] VITALS: BP 124/68
[2022-06-30 05:26] VITALS: BP 123/72
[2022-06-30] MEDS: Clindamycin INJ 300 MG/50 ML 50 ML IV SCH (05:55)
[2022-06-30] MEDS: HYDROCODONE/APAP 5MG-325MG TAB PO PRN (06:01)
[2022-06-30 06:47] LABS: BASOPHILS # (AUTO) 0.1 (0.0-0.1); BASOPHILS % 1.4 % (0.0-1.0); EOSINOPHILS # (AUTO) 1.1 (0.0-0.4); EOSINOPHILS % 21.2 % (0.0-6.0); HEMATOCRIT 32.8 % (34.2-44.1); HEMOGLOBIN 10.2 g/dL (12.0-16.0); LYMPHOCYTES # (AUTO) 1.6 (1.0-3.2); LYMPHOCYTES % 31.7 % (18.0-39.1); MEAN CORPUSCULAR HEMOGLOBIN 30.4 pg (28-32); MEAN CORPUSCULAR HGB CONC 31.1 g/dL (31-35); MEAN CORPUSCULAR VOLUME 97.6 fL (81-99); MONOCYTES # (AUTO) 0.4 (0.2-0.8); MONOCYTES % 7.3 % (4.4-11.3); NEUTROPHILS % 38.2 % (38.7-80.0); PLATELET COUNT 134 x10e3/uL (140-360); RED BLOOD COUNT 3.36 x10e6/uL (3.6-5.1); RED CELL DISTRIBUTION WIDTH 16.3 % (11.7-14.4)
[2022-06-30 07:09] LABS: ANION GAP 13.8 mmol/L (8-16); CALCIUM 8.7 mg/dL (8.4-10.2); CREATININE, SERUM 0.95 mg/dL (0.57-1.11); POTASSIUM 3.8 mmol/L (3.5-5.1)
[2022-06-30 08:24] VITALS: BP 136/74
[2022-06-30] MEDS: CLOPIDOGREL BISULFATE 75 MG TAB PO SCH (08:39)
[2022-06-30] MEDS: CELECOXIB 100 MG CAP PO SCH (08:40)
[2022-06-30] MEDS: ASPIRIN 81 MG CHEW TAB PO SCH (08:40)
[2022-06-30] MEDS: PANTOPRAZOLE SOD 40 MG TABEC PO SCH (08:40)
[2022-06-30] MEDS: LACTOBACILLUS ACIDOPHILUS CAPSULE PO SCH (08:40)
[2022-06-30] MEDS: LOSARTAN POTASSIUM 25 MG TAB PO SCH (08:40)
[2022-06-30] MEDS: MECLIZINE HCL 12.5 MG TAB PO SCH (08:40)
[2022-06-30] MEDS: GABAPENTIN 100 MG CAP PO SCH (08:40)
[2022-06-30] MEDS: DULOXETINE HCL 30 MG DELAYED RELEASE PO SCH (08:40)
[2022-06-30] MEDS: METOPROLOL TARTRATE 25 MG TAB PO SCH (08:41)
[2022-06-30 09:00] VITALS: BP 136/74
[2022-06-30 09:08] LABS: EOSINOPHILS % (MANUAL) 24 % (0-7); LYMPHOCYTES % (MANUAL) 34 % (19-48); MONOCYTES % (MANUAL) 9 % (3.4-9.0); NEUTROPHILS % (MANUAL) 33 % (40-74)
[2022-06-30 09:09] LABS: PLATELET ESTIMATE SLIGHTLY DECREASED; PLATELET MORPHOLOGY COMMENT NORMAL; RBC MORPHOLOGY COMMENT NORMAL
[2022-06-30 12:06] VITALS: BP 131/65
[2022-07-04] MEDS ORDERED: Vancomycin IV 1 GM in SODIUM CHLORIDE 0.9% 250ML 250 ML IV ONE (09:00)
== END 2022-06-30 13:01 | disposition home or self-care (01) ==
LOC: ER 11:29 → ERHOLD 13:29 → MED/SURG3 16:24
PROVIDERS: ADMIT Internal Medicine; ATTEND Internal Medicine
DX: L03.116 Cellulitis of left lower limb (principal); M06.9 Rheumatoid arthritis, unspecified; M19.90 Unspecified osteoarthritis, unspecified site; D53.9 Nutritional anemia, unspecified; I25.10 Atherosclerotic heart disease of native coronary artery without angina pectoris; I10 Essential (primary) hypertension; I25.2 Old myocardial infarction; K21.9 Gastro-esophageal reflux disease without esophagitis; F41.9 Anxiety disorder, unspecified; F32.A Depression, unspecified; Z20.822 Contact with and (suspected) exposure to COVID-19; Z79.02 Long term (current) use of antithrombotics/antiplatelets; Z79.82 Long term (current) use of aspirin; Z79.899 Other long term (current) drug therapy; Z95.5 Presence of coronary angioplasty implant and graft
CPT/HCPCS: 0223U; 36415 ×3; 73630; 80048; 80053; 84550; 85025 ×3; 87040; 99284; G0378 ×3; J0692; J2543; J3370 ×2; J7050 ×2; J8597 ×2; S0164 ×2

== ENCOUNTER 2022-07-04 08:33 | Inpatient (IN) | payer MEDICARE ==
[2022-07-03 14:45] VITALS: BP 148/98
[~2022-07-04] VITALS: Ht 157.5 cm; Wt 67.2 kg
[~2022-07-04 08:33] MED LIST changes: +CYMBALTA30 MG PO; +VITAMIN D250 MC1 PO
[2022-07-04] MEDS ORDERED: ONDANSETRON HCL INJ 2MG/ML 2ML 2 MG/ML VIAL IV PRN (09:00)
[2022-07-04 09:08] LABS: BASOPHILS # (AUTO) 0.1 (0.0-0.1); BASOPHILS % 0.8 % (0.0-1.0); EOSINOPHILS # (AUTO) 1.2 (0.0-0.4); EOSINOPHILS % 19.4 % (0.0-6.0); HEMATOCRIT 34.2 % (34.2-44.1); HEMOGLOBIN 10.9 g/dL (12.0-16.0); LYMPHOCYTES # (AUTO) 1.6 (1.0-3.2); LYMPHOCYTES % 26.3 % (18.0-39.1); MEAN CORPUSCULAR HEMOGLOBIN 30.4 pg (28-32); MEAN CORPUSCULAR HGB CONC 31.9 g/dL (31-35); MEAN CORPUSCULAR VOLUME 95.5 fL (81-99); MONOCYTES # (AUTO) 0.4 (0.2-0.8); MONOCYTES % 6.4 % (4.4-11.3); NEUTROPHILS # (AUTO) 2.9 (2.1-6.9); NEUTROPHILS % 46.9 % (38.7-80.0); PLATELET COUNT 179 x10e3/uL (140-360); RED BLOOD COUNT 3.58 x10e6/uL (3.6-5.1)
[2022-07-04 09:29] LABS: ALANINE AMINOTRANSFERASE 16 IU/L (0-55); ALBUMIN/GLOBULIN RATIO 0.7 (0.8-2.0); ALKALINE PHOSPHATASE 111 IU/L (40-150); ANION GAP 16.9 mmol/L (8-16); BLOOD UREA NITROGEN 28 mg/dL (7-26); BUN/CREATININE RATIO 6 (6-25); CALCIUM 8.6 mg/dL (8.4-10.2); CARBON DIOXIDE 20 mmol/L (22-29); CHLORIDE 107 mmol/L (98-107); CREATININE, SERUM 4.49 mg/dL (0.57-1.11); GLUCOSE 98 mg/dL (74-118); MAGNESIUM 2.2 MG/DL (1.3-2.1); POTASSIUM 3.9 mmol/L (3.5-5.1); SODIUM 140 mmol/L (136-145)
[2022-07-04] MEDS: SODIUM CHLORIDE 0.9% 1000ML 1,000 ML IV SCH ×2 (09:54→21:20)
[2022-07-04] MEDS: HYDROCODONE/APAP 5MG-325MG TAB PO PRN ×2 (09:55→17:50)
[2022-07-04 10:07] LABS: PROTHROMBIN TIME 13.7 seconds (11.9-14.5)
[2022-07-04 10:08] LABS: PARTIAL THROMBOPLASTIN TIME 30.1 seconds (23.8-35.5)
[2022-07-04 11:07] LABS: ANION GAP 15.1 mmol/L (8-16); CALCIUM 8.4 mg/dL (8.4-10.2); CREATININE, SERUM 4.46 mg/dL (0.57-1.11); POTASSIUM 4.1 mmol/L (3.5-5.1)
[2022-07-04] MEDS: LINEZOLID 600 MG/D5W 300ML 300 ML IV SCH ×2 (11:24→21:19)
[2022-07-04 15:07] VITALS: BP 148/98
[2022-07-04 16:00] VITALS: BP 148/98
[2022-07-04 16:02] VITALS: BP 146/71
[2022-07-04 19:49] VITALS: BP 146/71
[2022-07-04 20:00] VITALS: BP 169/78
[2022-07-05] VITALS (7 sets, daily range): BP systolic 153–179; BP diastolic 71–89
[2022-07-05 04:53] LABS: CLARITY,URINE SL CLOUDY (CLEAR); COLOR,URINE YELLOW (YELLOW); KETONES,URINE NEGATIVE (NEGATIVE); LEUKOCYTE ESTERASE ,URINE SMALL (NEGATIVE); NITRITE,URINE NEGATIVE (NEGATIVE); PROTEIN,URINE DIPSTICK NEGATIVE (NEGATIVE); URINE UROBILINOGEN 0.2 mg/dL (0.2 - 1)
[2022-07-05 04:59] LABS: BACTERIA,URINE FEW /HPF; EPITHELIAL CELLS,URINE FEW /LPF
[2022-07-05] MEDS: SODIUM CHLORIDE 0.9% 1000ML 1,000 ML IV SCH ×2 (05:34→20:38)
[2022-07-05] MEDS: HYDROCODONE/APAP 5MG-325MG TAB PO PRN ×4 (05:48→23:04)
[2022-07-05 06:15] LABS: BASOPHILS # (AUTO) 0.1 (0.0-0.1); EOSINOPHILS # (AUTO) 1.1 (0.0-0.4); EOSINOPHILS % 18.5 % (0.0-6.0); HEMATOCRIT 31.1 % (34.2-44.1); HEMOGLOBIN 9.5 g/dL (12.0-16.0); LYMPHOCYTES # (AUTO) 1.4 (1.0-3.2); LYMPHOCYTES % 23.3 % (18.0-39.1); MEAN CORPUSCULAR HEMOGLOBIN 30.2 pg (28-32); MEAN CORPUSCULAR HGB CONC 30.5 g/dL (31-35); MEAN CORPUSCULAR VOLUME 98.7 fL (81-99); MONOCYTES # (AUTO) 0.4 (0.2-0.8); MONOCYTES % 6.5 % (4.4-11.3); NEUTROPHILS # (AUTO) 3.1 (2.1-6.9); NEUTROPHILS % 50.4 % (38.7-80.0); PLATELET COUNT 152 x10e3/uL (140-360); RED BLOOD COUNT 3.15 x10e6/uL (3.6-5.1); RED CELL DISTRIBUTION WIDTH 15.9 % (11.7-14.4)
[2022-07-05 06:52] LABS: ALBUMIN 2.5 g/dL (3.5-5.0); ALBUMIN/GLOBULIN RATIO 0.7 (0.8-2.0); ANION GAP 17.2 mmol/L (8-16); CALCIUM 7.9 mg/dL (8.4-10.2); CREATININE, SERUM 5.08 mg/dL (0.57-1.11); POTASSIUM 4.2 mmol/L (3.5-5.1)
[2022-07-05] MEDS: LINEZOLID 600 MG/D5W 300ML 300 ML IV SCH ×2 (09:12→22:07)
[2022-07-05] MEDS: AMLODIPINE BESYLATE 5 MG TAB PO SCH ×2 (13:08→13:18)
[2022-07-05 14:45] LABS: CREATININE,URINE RANDOM 58.23 mg/dL (47-110)
[2022-07-06 00:48] VITALS: BP 117/69
[2022-07-06 04:00] VITALS: BP 176/73
[2022-07-06] MEDS: SODIUM CHLORIDE 0.9% 1000ML 1,000 ML IV SCH ×3 (05:17→20:49)
[2022-07-06 07:16] LABS: BASOPHILS # (AUTO) 0.1 (0.0-0.1); BASOPHILS % 0.9 % (0.0-1.0); EOSINOPHILS # (AUTO) 1.1 (0.0-0.4); EOSINOPHILS % 17.9 % (0.0-6.0); HEMATOCRIT 30.5 % (34.2-44.1); HEMOGLOBIN 9.5 g/dL (12.0-16.0); LYMPHOCYTES # (AUTO) 1.5 (1.0-3.2); LYMPHOCYTES % 26.1 % (18.0-39.1); MEAN CORPUSCULAR HEMOGLOBIN 30.3 pg (28-32); MEAN CORPUSCULAR HGB CONC 31.1 g/dL (31-35); MEAN CORPUSCULAR VOLUME 97.1 fL (81-99); MONOCYTES # (AUTO) 0.4 (0.2-0.8); MONOCYTES % 7.2 % (4.4-11.3); NEUTROPHILS # (AUTO) 2.8 (2.1-6.9); NEUTROPHILS % 47.7 % (38.7-80.0); PLATELET COUNT 144 x10e3/uL (140-360); RED BLOOD COUNT 3.14 x10e6/uL (3.6-5.1); RED CELL DISTRIBUTION WIDTH 15.9 % (11.7-14.4)
[2022-07-06 07:39] LABS: ALBUMIN 2.4 g/dL (3.5-5.0); ALBUMIN/GLOBULIN RATIO 0.7 (0.8-2.0); ANION GAP 13.5 mmol/L (8-16); CALCIUM 8.2 mg/dL (8.4-10.2); CREATININE, SERUM 5.21 mg/dL (0.57-1.11); POTASSIUM 4.5 mmol/L (3.5-5.1)
[2022-07-06 08:00] VITALS: BP 194/81
[2022-07-06] MEDS: AMLODIPINE BESYLATE 5 MG TAB PO SCH (08:59)
[2022-07-06] MEDS: PANTOPRAZOLE SOD 40 MG TABEC PO SCH ×2 (08:59→16:48)
[2022-07-06] MEDS: METOPROLOL TARTRATE 25 MG TAB PO SCH ×2 (08:59→16:48)
[2022-07-06] MEDS: DULOXETINE HCL 30 MG DELAYED RELEASE PO SCH (09:00)
[2022-07-06] MEDS: LOSARTAN POTASSIUM 25 MG TAB PO SCH (09:00)
[2022-07-06] MEDS: CLOPIDOGREL BISULFATE 75 MG TAB PO SCH (09:00)
[2022-07-06] MEDS: ASPIRIN 81 MG CHEW TAB PO SCH (09:00)
[2022-07-06] MEDS: HYDROCODONE/APAP 5MG-325MG TAB PO PRN ×2 (09:07→16:51)
[2022-07-06] MEDS: LINEZOLID 600 MG/D5W 300ML 300 ML IV SCH ×2 (10:00→22:51)
[2022-07-06 11:37] VITALS: BP 152/73
[2022-07-06 15:54] VITALS: BP 136/70
[2022-07-06 20:00] VITALS: BP 155/79
[2022-07-06] MEDS: ATORVASTATIN 20 MG TAB PO SCH (20:49)
[2022-07-07] VITALS (8 sets, daily range): BP systolic 129–181; BP diastolic 64–87
[2022-07-07 06:45] LABS: CALCIUM 8.2 mg/dL (8.4-10.2); CREATININE, SERUM 4.88 mg/dL (0.57-1.11)
[2022-07-07] MEDS: DULOXETINE HCL 30 MG DELAYED RELEASE PO SCH (08:54)
[2022-07-07] MEDS: PANTOPRAZOLE SOD 40 MG TABEC PO SCH ×2 (08:54→16:36)
[2022-07-07] MEDS: METOPROLOL TARTRATE 25 MG TAB PO SCH ×2 (08:54→16:36)
[2022-07-07] MEDS: AMLODIPINE BESYLATE 5 MG TAB PO SCH (08:54)
[2022-07-07] MEDS: LOSARTAN POTASSIUM 25 MG TAB PO SCH (08:56)
[2022-07-07] MEDS: ASPIRIN 81 MG CHEW TAB PO SCH (08:56)
[2022-07-07] MEDS: CLOPIDOGREL BISULFATE 75 MG TAB PO SCH (08:56)
[2022-07-07] MEDS: LINEZOLID 600 MG/D5W 300ML 300 ML IV SCH ×2 (08:57→21:13)
[2022-07-07] MEDS: SODIUM CHLORIDE 0.9% 1000ML 1,000 ML IV SCH ×2 (08:58→16:55)
[2022-07-07] MEDS ORDERED: ERGOCALCIFEROL 50,000 UNIT CAP PO SCH (11:00)
[2022-07-07] MEDS: HYDROCODONE/APAP 5MG-325MG TAB PO PRN (16:42)
[2022-07-07] MEDS ORDERED: IPRATROPIUM BROMIDE 0.02% 2.5 ML NEB NEB PRN (18:15)
[2022-07-07] MEDS: BENZONATATE 100 MG CAP PO PRN (18:55)
[2022-07-07] MEDS: ALBUTEROL SULF 0.083% NEB SOLN 3 ML NEB NEB PRN (18:57)
[2022-07-07] MEDS: ATORVASTATIN 20 MG TAB PO SCH (21:13)
[2022-07-08] VITALS (8 sets, daily range): BP systolic 144–161; BP diastolic 68–91
[2022-07-08] MEDS: SODIUM CHLORIDE 0.9% 1000ML 1,000 ML IV SCH ×2 (03:35→14:39)
[2022-07-08 07:00] LABS: ANION GAP 13.9 mmol/L (8-16); CALCIUM 7.8 mg/dL (8.4-10.2); CREATININE, SERUM 4.68 mg/dL (0.57-1.11); POTASSIUM 3.9 mmol/L (3.5-5.1)
[2022-07-08] MEDS: DULOXETINE HCL 30 MG DELAYED RELEASE PO SCH (09:39)
[2022-07-08] MEDS: CLOPIDOGREL BISULFATE 75 MG TAB PO SCH (09:39)
[2022-07-08] MEDS: ASPIRIN 81 MG CHEW TAB PO SCH (09:39)
[2022-07-08] MEDS: LOSARTAN POTASSIUM 25 MG TAB PO SCH (09:39)
[2022-07-08] MEDS: PANTOPRAZOLE SOD 40 MG TABEC PO SCH ×2 (09:39→17:42)
[2022-07-08] MEDS: METOPROLOL TARTRATE 25 MG TAB PO SCH ×2 (09:40→17:42)
[2022-07-08] MEDS: LINEZOLID 600 MG/D5W 300ML 300 ML IV SCH ×2 (09:40→21:36)
[2022-07-08] MEDS: AMLODIPINE BESYLATE 5 MG TAB PO SCH (09:43)
[2022-07-08] MEDS: HYDROCODONE/APAP 5MG-325MG TAB PO PRN (17:46)
[2022-07-08] MEDS: ALBUTEROL SULF 0.083% NEB SOLN 3 ML NEB NEB PRN (19:45)
[2022-07-08] MEDS: ATORVASTATIN 20 MG TAB PO SCH (20:09)
[2022-07-08] MEDS: MUPIROCIN 2% OINT 22 GM TUBE TOP SCH (21:37)
[2022-07-09] VITALS (8 sets, daily range): BP systolic 126–155; BP diastolic 63–93
[2022-07-09] MEDS: SODIUM CHLORIDE 0.9% 1000ML 1,000 ML IV SCH ×3 (05:07→20:17)
[2022-07-09] MEDS: ALBUTEROL SULF 0.083% NEB SOLN 3 ML NEB NEB PRN (06:30)
[2022-07-09 07:11] LABS: ANION GAP 12.2 mmol/L (8-16); CALCIUM 7.8 mg/dL (8.4-10.2); CREATININE, SERUM 4.13 mg/dL (0.57-1.11); POTASSIUM 4.2 mmol/L (3.5-5.1)
[2022-07-09] MEDS: AMLODIPINE BESYLATE 5 MG TAB PO SCH (09:44)
[2022-07-09] MEDS: DULOXETINE HCL 30 MG DELAYED RELEASE PO SCH (09:44)
[2022-07-09] MEDS: PANTOPRAZOLE SOD 40 MG TABEC PO SCH ×2 (09:44→17:50)
[2022-07-09] MEDS: CLOPIDOGREL BISULFATE 75 MG TAB PO SCH (09:45)
[2022-07-09] MEDS: METOPROLOL TARTRATE 25 MG TAB PO SCH ×2 (09:45→17:50)
[2022-07-09] MEDS: ASPIRIN 81 MG CHEW TAB PO SCH (09:45)
[2022-07-09] MEDS: LOSARTAN POTASSIUM 25 MG TAB PO SCH (09:45)
[2022-07-09] MEDS: MUPIROCIN 2% OINT 22 GM TUBE TOP SCH (09:46)
[2022-07-09] MEDS: LINEZOLID 600 MG/D5W 300ML 300 ML IV SCH ×2 (09:46→21:42)
[2022-07-09] MEDS: ATORVASTATIN 20 MG TAB PO SCH (20:17)
[2022-07-09] MEDS: BENZONATATE 100 MG CAP PO PRN (20:18)
[2022-07-09] MEDS: HYDROCODONE/APAP 5MG-325MG TAB PO PRN (20:18)
[2022-07-10] VITALS (8 sets, daily range): BP systolic 117–162; BP diastolic 54–81
[2022-07-10 06:45] LABS: ANION GAP 10.4 mmol/L (8-16); CALCIUM 7.7 mg/dL (8.4-10.2); CREATININE, SERUM 3.77 mg/dL (0.57-1.11); POTASSIUM 4.4 mmol/L (3.5-5.1)
[2022-07-10] MEDS: SODIUM CHLORIDE 0.9% 1000ML 1,000 ML IV SCH ×3 (07:00→20:34)
[2022-07-10] MEDS: PANTOPRAZOLE SOD 40 MG TABEC PO SCH ×2 (09:18→16:01)
[2022-07-10] MEDS: AMLODIPINE BESYLATE 5 MG TAB PO SCH (09:18)
[2022-07-10] MEDS: DULOXETINE HCL 30 MG DELAYED RELEASE PO SCH (09:18)
[2022-07-10] MEDS: CLOPIDOGREL BISULFATE 75 MG TAB PO SCH (09:18)
[2022-07-10] MEDS: ASPIRIN 81 MG CHEW TAB PO SCH (09:18)
[2022-07-10] MEDS: LOSARTAN POTASSIUM 25 MG TAB PO SCH (09:19)
[2022-07-10] MEDS: LINEZOLID 600 MG/D5W 300ML 300 ML IV SCH ×2 (09:19→20:34)
[2022-07-10] MEDS: METOPROLOL TARTRATE 25 MG TAB PO SCH ×2 (09:19→16:01)
[2022-07-10] MEDS: MUPIROCIN 2% OINT 22 GM TUBE TOP SCH (09:19)
[2022-07-10] MEDS ORDERED: ONDANSETRON HCL 4 MG ORAL DISINTEGRATING TAB PO PRN (12:15)
[2022-07-10] MEDS: BENZONATATE 100 MG CAP PO PRN (20:34)
[2022-07-10] MEDS: ATORVASTATIN 20 MG TAB PO SCH (20:34)
[2022-07-10] MEDS: HYDROCODONE/APAP 5MG-325MG TAB PO PRN (20:35)
[2022-07-11] VITALS (8 sets, daily range): BP systolic 138–161; BP diastolic 71–90
[2022-07-11] MEDS: SODIUM CHLORIDE 0.9% 1000ML 1,000 ML IV SCH ×2 (05:49→21:55)
[2022-07-11 06:37] LABS: ANION GAP 9.6 mmol/L (8-16); CALCIUM 7.7 mg/dL (8.4-10.2); CREATININE, SERUM 3.16 mg/dL (0.57-1.11); POTASSIUM 3.6 mmol/L (3.5-5.1)
[2022-07-11] MEDS: AMLODIPINE BESYLATE 5 MG TAB PO SCH (09:20)
[2022-07-11] MEDS: DULOXETINE HCL 30 MG DELAYED RELEASE PO SCH (09:20)
[2022-07-11] MEDS: PANTOPRAZOLE SOD 40 MG TABEC PO SCH ×2 (09:21→17:51)
[2022-07-11] MEDS: CLOPIDOGREL BISULFATE 75 MG TAB PO SCH (09:21)
[2022-07-11] MEDS: LINEZOLID 600 MG/D5W 300ML 300 ML IV SCH ×2 (09:22→21:55)
[2022-07-11] MEDS: METOPROLOL TARTRATE 25 MG TAB PO SCH ×2 (09:22→17:52)
[2022-07-11] MEDS: LOSARTAN POTASSIUM 25 MG TAB PO SCH (09:22)
[2022-07-11] MEDS: ASPIRIN 81 MG CHEW TAB PO SCH (09:22)
[2022-07-11] MEDS: MUPIROCIN 2% OINT 22 GM TUBE TOP SCH (09:22)
[2022-07-11] MEDS: ATORVASTATIN 20 MG TAB PO SCH (21:53)
[2022-07-12] VITALS (10 sets, daily range): BP systolic 150–168; BP diastolic 77–94
[2022-07-12] MEDS: SODIUM CHLORIDE 0.9% 1000ML 1,000 ML IV SCH ×2 (05:18→17:37)
[2022-07-12 06:19] LABS: ANION GAP 13.3 mmol/L (8-16); CALCIUM 7.8 mg/dL (8.4-10.2); CREATININE, SERUM 2.64 mg/dL (0.57-1.11); POTASSIUM 3.3 mmol/L (3.5-5.1)
[2022-07-12] MEDS: DULOXETINE HCL 30 MG DELAYED RELEASE PO SCH (08:58)
[2022-07-12] MEDS: PANTOPRAZOLE SOD 40 MG TABEC PO SCH ×2 (08:59→17:37)
[2022-07-12] MEDS: AMLODIPINE BESYLATE 5 MG TAB PO SCH (08:59)
[2022-07-12] MEDS: MUPIROCIN 2% OINT 22 GM TUBE TOP SCH (09:01)
[2022-07-12] MEDS: ASPIRIN 81 MG CHEW TAB PO SCH (09:01)
[2022-07-12] MEDS: LOSARTAN POTASSIUM 25 MG TAB PO SCH (09:01)
[2022-07-12] MEDS: CLOPIDOGREL BISULFATE 75 MG TAB PO SCH (09:01)
[2022-07-12] MEDS: METOPROLOL TARTRATE 25 MG TAB PO SCH ×2 (09:01→17:38)
[2022-07-12] MEDS: LINEZOLID 600 MG/D5W 300ML 300 ML IV SCH ×2 (09:02→22:12)
[2022-07-12] MEDS: BENZONATATE 100 MG CAP PO PRN ×2 (09:15→22:12)
[2022-07-12] MEDS: ATORVASTATIN 20 MG TAB PO SCH (22:13)
[2022-07-13] VITALS: BP 169/96
[2022-07-13 04:00] VITALS: BP 158/78
[2022-07-13 05:47] LABS: ANION GAP 14.1 mmol/L (8-16); CALCIUM 7.6 mg/dL (8.4-10.2); CREATININE, SERUM 2.32 mg/dL (0.57-1.11); POTASSIUM 3.1 mmol/L (3.5-5.1)
[2022-07-13 08:00] VITALS: BP 161/83
[2022-07-13 08:14] VITALS: BP 161/83
[2022-07-13] MEDS: AMLODIPINE BESYLATE 5 MG TAB PO SCH (08:57)
[2022-07-13] MEDS: DULOXETINE HCL 30 MG DELAYED RELEASE PO SCH (08:57)
[2022-07-13] MEDS: PANTOPRAZOLE SOD 40 MG TABEC PO SCH ×2 (08:57→16:26)
[2022-07-13] MEDS: LOSARTAN POTASSIUM 25 MG TAB PO SCH (08:58)
[2022-07-13] MEDS: ASPIRIN 81 MG CHEW TAB PO SCH (08:58)
[2022-07-13] MEDS: METOPROLOL TARTRATE 25 MG TAB PO SCH ×2 (08:59→16:27)
[2022-07-13] MEDS: MUPIROCIN 2% OINT 22 GM TUBE TOP SCH (08:59)
[2022-07-13] MEDS: CLOPIDOGREL BISULFATE 75 MG TAB PO SCH (08:59)
[2022-07-13] MEDS ORDERED: POTASSIUM CHLORIDE 10MEQ EA PO ONE (10:15)
[2022-07-13] MEDS ORDERED: ACETAMINOPHEN/CODEINE 300MG - 30MG TAB PO ONE ×2 (11:15→15:45)
[2022-07-13] MEDS ORDERED: CYCLOBENZAPRINE HCL 10 MG TAB PO ONE (11:15)
[2022-07-13 11:48] VITALS: BP 145/83
[2022-07-13] MEDS ORDERED: POTASSIUM CHLORIDE 20 MEQ TAB CR PO STA (14:10)
[2022-07-13 15:59] VITALS: BP 143/82
[2022-07-13] MEDS ORDERED: DOXYCYCLINE HYCLATE TABLET 100 MG TAB PO SCH (17:00)
== END 2022-07-13 16:36 | disposition home or self-care (01) | DRG 603 ==
LOC: ER 08:38 → ERHOLD 09:01 → MED/SURG3 14:15
PROVIDERS: ADMIT Internal Medicine; ATTEND Internal Medicine
DX: L03.116 Cellulitis of left lower limb (principal); N17.9 Acute kidney failure, unspecified; N39.0 Urinary tract infection, site not specified; N12 Tubulo-interstitial nephritis, not specified as acute or chronic; I25.2 Old myocardial infarction; I25.10 Atherosclerotic heart disease of native coronary artery without angina pectoris; D64.9 Anemia, unspecified; K21.9 Gastro-esophageal reflux disease without esophagitis; M19.90 Unspecified osteoarthritis, unspecified site; M06.9 Rheumatoid arthritis, unspecified; F41.9 Anxiety disorder, unspecified; F32.9 Major depressive disorder, single episode, unspecified; I12.9 Hypertensive chronic kidney disease with stage 1 through stage 4 chronic kidney disease, or unspecified chronic kidney disease; N18.9 Chronic kidney disease, unspecified; E78.5 Hyperlipidemia, unspecified; E87.6 Hypokalemia; Z20.822 Contact with and (suspected) exposure to COVID-19; Z90.49 Acquired absence of other specified parts of digestive tract; Z79.82 Long term (current) use of aspirin; Z95.5 Presence of coronary angioplasty implant and graft
CPT/HCPCS: 0223U; 36415; 76770; 80048; 80053; 81001; 81015; 82570; 83735; 84300; 85025; 85610; 85730; 86160; 87040; 87086; 94640; 94799; 96361; 99252; 99284; J2020; J2405; J2543; J7030; Q0162

== ENCOUNTER 2022-08-06 09:46 | Emergency (ER) | payer MEDICARE ==
[~2022-08-06] VITALS: Ht 154.9 cm; Wt 56.7 kg
[2022-08-06 10:44] LABS: BASOPHILS % 0.6 % (0.0-1.0); EOSINOPHILS # (AUTO) 0.3 (0.0-0.4); EOSINOPHILS % 4.6 % (0.0-6.0); HEMATOCRIT 32.9 % (34.2-44.1); HEMOGLOBIN 10.7 g/dL (12.0-16.0); LYMPHOCYTES # (AUTO) 1.6 (1.0-3.2); LYMPHOCYTES % 25.3 % (18.0-39.1); MEAN CORPUSCULAR HEMOGLOBIN 29.7 pg (28-32); MEAN CORPUSCULAR HGB CONC 32.5 g/dL (31-35); MEAN CORPUSCULAR VOLUME 91.4 fL (81-99); MONOCYTES # (AUTO) 0.4 (0.2-0.8); NEUTROPHILS # (AUTO) 3.9 (2.1-6.9); PLATELET COUNT 254 x10e3/uL (140-360); RED CELL DISTRIBUTION WIDTH 15.7 % (11.7-14.4)
[2022-08-06 11:02] LABS: ALBUMIN 2.6 g/dL (3.5-5.0); ALBUMIN/GLOBULIN RATIO 0.6 (0.8-2.0); ANION GAP 18.5 mmol/L (8-16); CALCIUM 9.2 mg/dL (8.4-10.2); CREATININE, SERUM 1.77 mg/dL (0.57-1.11)
[2022-08-06 11:03] LABS: POTASSIUM 2.5 mmol/L (3.5-5.1)
[2022-08-06 11:15] LABS: CLARITY,URINE CLOUDY (CLEAR); COLOR,URINE YELLOW (YELLOW); KETONES,URINE TRACE (NEGATIVE); LEUKOCYTE ESTERASE ,URINE SMALL (NEGATIVE); NITRITE,URINE NEGATIVE (NEGATIVE); PROTEIN,URINE DIPSTICK 1+ (NEGATIVE); URINE UROBILINOGEN 0.2 mg/dL (0.2 - 1)
[2022-08-06] MEDS ORDERED: POTASSIUM CHLORIDE 10MEQ/100ML 200 ML IV ONE (11:15)
[2022-08-06] MEDS ORDERED: POTASSIUM CITRATE ER 10 MEQ TAB PO ONE (11:15)
[2022-08-06 11:31] LABS: BACTERIA,URINE MODERATE /HPF; EPITHELIAL CELLS,URINE FEW /LPF; RBC,URINE 0-5 /HPF (0-5); TRANSITIONAL EPI CELLS,URINE RARE; WBC,URINE (MAN) 21-50 /HPF (0-5)
[2022-08-06] MEDS ORDERED: ULTRAM 50MG50 MG PO (16:38)
[2022-08-06] MEDS ORDERED: CEFDINIR300 MG PO (16:38)
[2022-08-06 17:21] VITALS: O2SAT 99
== END 2022-08-06 17:40 | disposition home or self-care (01) ==
LOC: ER 09:52
DX: R06.02 Shortness of breath (principal); R42 Dizziness and giddiness; N39.0 Urinary tract infection, site not specified; S32.010A Wedge compression fracture of first lumbar vertebra, initial encounter for closed fracture; I10 Essential (primary) hypertension; I25.10 Atherosclerotic heart disease of native coronary artery without angina pectoris; K21.9 Gastro-esophageal reflux disease without esophagitis; D64.9 Anemia, unspecified; R94.31 Abnormal electrocardiogram [ECG] [EKG]; I25.2 Old myocardial infarction; Z95.5 Presence of coronary angioplasty implant and graft
CPT/HCPCS: 36415; 71045; 72100; 78580; 80053; 81001; 83880; 84484; 85025; 85379; 87086; 87186; 93005; 99284; A9540; J0696; J3480